=== PATIENT | female | born 1950 | race Caucasian/White ===

== ENCOUNTER 2016-10-30 08:30 | Inpatient (IN) | payer MEDICAID ==
--- NOTE | 2016-10-11 14:00 | NUR ---
JOINT REPLACEMENT PREOP CLASS PATIENT ATTENDED JOINT REPLACEMENT PREOP CLASS. CASE MANAGEMENT CONTACT INFORMATION PROVIDED. EDUCATION WAS PROVIDED REGARDING WHAT TO EXPECT BEFORE, DURING AND AFTER SURGERY. INCLUDING: OVERVIEW OF ANATOMY AND PHYSIOLOGY HOSPITAL TREATMENT SCHEDULE THERAPY DEMONSTRATION CASE MANAGEMENT RESPONSIBILITIES DISCHARGE PLANNING EQUIPMENT NEEDS JOINT REPLACEMENT WORKBOOK ANTI-COAGULATION SURGERY STRONG NUTRITIONAL PROTOCOL DISCHARGE INSTRUCTIONS [facility] [place]IENT [place]AL, WITH INSTRUCTIONS CJR AND PREOP SURVERY PREOP BATHING- CHG GIVEN ALL PATIENT'S QUESTIONS ANSWERED TO THEIR SATISFACTION. PATIENTS AND COACHES ENCOURAGED TO CALL WITH ANY ADDITIONAL QUESTIONS OR CONCERNS. CM FOLLOWING FOR TRANSITIONAL CARE PLANNING NEEDS DURING HOSPITALIZATION.
--- NOTE | 2016-10-25 14:14 | NUR ---
Reschedule Surgery Per telephone conversation with patient she has not been cleared with Dr Ellison and has a stress test scheduled after the current date of surgery. Confirmed this with Dr Ellison's office and rescheduled WILMER with patient for 11-20-16.
[~2016-10-30] VITALS: Ht 162.6 cm; Wt 96.5 kg
[~2016-10-30 08:30] MED LIST: ACET325T65 PO; ALBU18HF2 INH; ATEN50TA PO; CYCL-375 PO; DICL1TAB53 PO; ESTR0.3T26 PO; GABA-338 PO; LISI40TA4 PO; RANI150T7 PO; SIMV40TA5 PO
[2016-11-08] MEDS ORDERED: MONT10TA22 PO (10:12)
[2016-11-08] MEDS ORDERED: TIOT18CA3 ORAL INH (10:12)
[2016-11-08] MEDS ORDERED: SPIR25TA4 PO (10:12)
[2016-11-08] MEDS ORDERED: FLUT1DIS ORAL INH (10:12)
--- NOTE | 2016-11-08 12:00 | NUR ---
Abnormal labs Dr Pace notified with specific attention to elevated BUN and Creat and GFR of 35 drawn on 10-25-17. [place] [facility] [place] to him to compare, normal GFR, Creat and slightly elevated BUN. Per phone conversation with Dr Pace, patient is on numerous medications to control BP which he feels is elevated due to pain from her arthritic hip. His recommendation is to proceed with surgery and consult either Cardiology or Hospitalist for management of BP postop. Medication may need to be adjusted after surgery as pain is relieved. Dr Horvath and Jovanny HUNT notified.
--- NOTE | 2016-11-12 10:06 | NUR ---
NN CALLED PT WITH CHECK IN TIME FOR HER PROCEDURE. PT STATED SHE NEEDED TO CANCEL HER PROCEDURE FOR TOMORROW SHE IS SICK WITH BRONCHITIS. TRANSFERRED PT TO [facility]. SO SHE COULD NOTIFY PHYSICIAN.
--- NOTE | 2016-11-12 10:45 | NUR ---
Cancel Surgery Patient has a bad head cold and has been running a low grade fever over the weekend. She will see her PCP today but needs to cancel for tomorrow. OR medical appointment scheduler notified as well as Erin Quiroga MA to notify Dr Horvath.
[2017-01-02] MEDS ORDERED: HYDR25TA PO (16:49)
[2017-01-02] MEDS ORDERED: CALC-191 PO (16:49)
[2017-01-02] MEDS ORDERED: ALBU2.5V7 AEROSOL (16:49)
--- NOTE | 2017-01-02 16:49 | NUR ---
Face to face encounter with patient and her in preparation for surgery on 01-29-17. Pt did have labs drawn per request of Dr Horvath. Preop and DOS instructions reviewed and patient was encouraged to begin exercises that she is able to do in prep for surgery. States she has Boost, Hibiclens, and we reviewed that she should DC her Diclofenac one week before surgery. PMH, allergies, and meds updated.
[2017-01-28] MEDS ORDERED: OXYC-532 PO (14:57)
--- NOTE | 2017-01-28 16:53 | NUR ---
NN/[place] PATIENT REPORTS THAT SHE WAS TOLD BY JOINT CAMP PERSON TO ONLY WASH 24 HRS BEFORE SURGERY, I DID INSTRUCT PATIENT THAT SHE WAS TO WASH 4 DAYS PRIOR INCLUDING MORNING OF SURGERY. Addendum: 01/28/17 at 1657 by JOAQUÍN HERNANDEZ RN 3 DAYS PRIOR AND DOS, CHARTED BY
[2017-01-29] VITALS (29 sets, daily range): BP systolic 84–157; BP diastolic 50–99; PULSE 54–113; RESP 10–18; TEMP 96.6–98.5; O2SAT 90–100; Ht 162.6 cm; Wt 96.5 kg
[2017-01-29] MEDS ORDERED: TRANEXAMIC ACID 1,000 MG in NORMAL SALINE 100 ML IV ONE ×2 (06:00→11:30)
[2017-01-29] MEDS ORDERED: LR 1,000 ML IV SCH (06:00)
[2017-01-29] MEDS ORDERED: METOCLOPRAMIDE 10mg/2ml INJECTION IV ONE (06:00)
[2017-01-29] MEDS ORDERED: FAMOTIDINE 20mg IVPB 50 ML IV ONE (06:00)
[2017-01-29] MEDS ORDERED: NOZIN NASAL SWAB NS ONE ×2 (07:00→12:30)
[2017-01-29] MEDS ORDERED: ONDANSETRON 4mg/2ml INJECTION IV ONE (07:00)
[2017-01-29] MEDS ORDERED: ACETAMINOPHEN 500 MG TABLET PO ONE (07:00)
[2017-01-29] MEDS ORDERED: DEXAMETHASONE 4mg/ml - 1ml INJECTION IV ONE (07:00)
[2017-01-29] MEDS ORDERED: CEFAZOLIN 2 GM VIAL IV ONE (07:00)
[2017-01-29] MEDS ORDERED: LIDOCAINE 1% (10mg/ml) 2ml SDV SQ ONE (07:00)
[2017-01-29] MEDS ORDERED: EPINEPHRINE 0.25 MG, BUPIVACAINE 0.25% 75 MG, MORPHINE SULFATE 15 MG, KETOROLAC 60 MG i... INJ ONE ×5 (08:00)
--- OUTSIDE RECORDS SUMMARY | 2017-01-29 08:20 | XMS REPORT ---
Author Author Yordy Espinoza Organization [employer] Address Unknown Phone Unavailable Care Team Providers Care Cloth Shearer Name Role Phone Yordy Espinoza CP Unavailable Allergies, Adverse Reactions, Alerts Substance Reaction Event Type Sulfa itching Drug Allergy Lortab itching Drug Allergy Problems Problem Type Condition Code Onset Dates Condition Status Assessment Chronic obstructive pulmonary disease, unspecified J44.9 Active Assessment Mixed hyperlipidemia E78.2 Active Assessment Gastro-esophageal reflux disease without esophagitis K21.9 Active Assessment Nonspecific reaction to cell mediated immunity measurement of gamma interferon antigen response without active tuberculosis R76.12 Active Assessment 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 Problem Hypertension, benign 401.1 Active Problem Anxiety state, unspecified 300.00 Active Problem Other chronic pain 338.29 Active Assessment Essential (primary) hypertension I10 Active Assessment Otitis media, unspecified, right ear H66.91 Active Problem COPD 496 Active Problem Mixed hyperlipidemia 272.2 Active Medications Medication Code System Code Instructions Start Date End Date Status Dosage Spiriva HandiHaler [facility] [address]-05 18 MCG Oct 27, 2015 TAKE 1 CAPSULE ONCE A DAY BY INHALATION Gabapentin [facility] [address]-32 300 MG Orally Three times a day Jul 29, 2015 1 capsule Stool Softener [facility] [address]-68 100 MG Orally prn 1 capsule as needed Arthrotec [facility] [address]-76 50-200 MG-MCG Orally Three times a day 1 tablet Montelukast Sodium [facility] 65186822620 10 MG Orally at bedtime 1 tablet at bedtime Premarin [facility] [address]-76 0.3 MG Orally once a day TAKE 1 TABLET Flexeril [facility] [address]-64 10 MG Orally as needed takes occasionally 1 tablet Albuterol Sulfate [facility] 32901807910 (2.5 MG/3ML) 0.083% Inhalation as needed 1 -2 times per week 3 ml Simvastatin [facility] [address]-34 40MG Orally Once a day 1 tablet in the evening Ranitidine HCl [facility] [address]-34 150 MG TAKE 1 TABLET BY MOUTH TWO TIMES A DAY Atenolol [facility] 22286966386 50 MG Orally Twice every day TAKE 1 TABLET BY MOUTH TWO TIMES A DAY Lisinopril [facility] [address]-83 40 MG TAKE 1 TABLET BY MOUTH EVERY DAY Amoxicillin [facility] [address]-78 875 MG Orally Twice a day Aug 25, 2015 Sep 04, 2015 1 tablet Vitamin C [facility] [address]-59 500 MG Orally Once a day 1 tablet Calcium + D [facility] [address]-07 600-200 MG-UNIT Orally Once a day 1/ 2 tablet with food Ventolin HFA [facility] [address]-66 90 MCG/ACT Inhalation as needed Oct 11, 2014 2 puffs as needed Nystatin [facility] 14217451415 512153 UNIT/GM Externally Three times a day 1 application to affected area Oxycodone-Acetaminophen [facility] [address]-86 7.5-325 Orally every 6 hrs 1 tablet as needed Nebulizer/Tubing/Mouthpiece [facility] [address]47-[address]083 1 for inhalation:dx 496 1-2 times per week May 07, 2014 as directed Advair Diskus [facility] [address]-84 100-50 MCG/DOSE Inhalation Twice a day Nov 11, 2014 1 puff Procedures Procedure Coding System Code Date OFFICE VISIT, EST-MOD. COMPLEXITY (25 MIN) CPT-4 61805 Aug 25, 2015 Vital Signs Date/Time: Aug 25, 2015 Height 64 in Weight 181.4 lbs Temperature 98.2 F Blood Pressure Diastolic 106 mm Hg Blood Pressure Systolic 152 mm Hg Cardiac Monitoring Heart Rate 71 /min BMI 31.13 Index Oximetry 94 % Respiratory Rate 18 /min Results No Known Results Summary Purpose [employer] Submission
--- OUTSIDE RECORDS SUMMARY | 2017-01-29 08:20 | XMS REPORT ---
Author Author Franc Pace Organization [employer] Address Unknown Phone Unavailable Care Team Providers Care Pecan Gatherer Name Role Phone Franc Pace CP Unavailable Allergies No Known Allergies Problems Problem Type Condition ICD-9 Code Onset Dates Condition Status Problem Hypertension, benign 401.1 Active Problem Anxiety state, unspecified 300.00 Active Problem Other chronic pain 338.29 Active Problem COPD 496 Active Problem Mixed hyperlipidemia 272.2 Active Medications Medication Code System Code Instructions Start Date End Date Status Dosage Premarin [facility] [address]-51 0.3 MG Orally One daily April 01, 2013 Active 1 tablet Lisinopril [facility] [address]-67 40 MG Active TAKE 1 TABLET BY MOUTH EVERY DAY Vital Signs Date/Time: Aug 04, 2014 Height 64 inches Weight 185 lbs Temperature 98.2 F Blood Pressure Diastolic 87 mm Hg Blood Pressure Systolic 166 mm Hg Cardiac Monitoring Heart Rate 68 Beats per Minute BMI 31.75 Index Respiratory Rate 20 per Minute Results No Known Results Summary Purpose [employer] Submission
--- OUTSIDE RECORDS SUMMARY | 2017-01-29 08:20 | XMS REPORT ---
Author Author Yordy Espinoza Organization [employer] Address Unknown Phone Unavailable Care Team Providers Care Citrus Picker Name Role Phone Yordy Espinoza Unavailable Allergies No Known Allergies Problems Problem Type Condition Code Onset Dates Condition Status Problem Hypertension, benign 401.1 Active Problem Anxiety state, unspecified 300.00 Active Problem Other chronic pain 338.29 Active Problem COPD 496 Active Problem Mixed hyperlipidemia 272.2 Active Medications Medication Code System Code Instructions Start Date End Date Status Dosage Spiriva HandiHaler [facility] [address]-25 18 MCG Inhalation Once a day May 07, 2016 TAKE 1 CAPSULE ONCE A DAY BY INHALATION Results No Known Results Summary Purpose [employer] Submission
--- OUTSIDE RECORDS SUMMARY | 2017-01-29 08:20 | XMS REPORT ---
Author Author Yordy Espinoza Organization [employer] Address Unknown Phone Unavailable Care Team Providers Care Family Resource Management Professor Name Role Phone Yordy Espinoza CP Unavailable Allergies No Known Allergies Problems Problem Type Condition Code Onset Dates Condition Status Problem Hypertension, benign 401.1 Active Problem Anxiety state, unspecified 300.00 Active Problem Other chronic pain 338.29 Active Problem COPD 496 Active Problem Mixed hyperlipidemia 272.2 Active Medications Medication Code System Code Instructions Start Date End Date Status Dosage Lisinopril [facility] [address]-04 40 MG Orally Once a day TAKE 1 TABLET BY MOUTH EVERY DAY Results No Known Results Summary Purpose [employer] Submission
--- OUTSIDE RECORDS SUMMARY | 2017-01-29 08:20 | XMS REPORT ---
Author Yordy Brownlee Organization [employer] Address Unknown Phone Unavailable Care Team Providers Care Merchandise Director Name Role Phone Yordy Espinoza Unavailable Allergies No Known Allergies Problems Problem Type Condition Code Onset Dates Condition Status Problem Hypertension, benign 401.1 Active Problem Anxiety state, unspecified 300.00 Active Problem Other chronic pain 338.29 Active Assessment Essential (primary) hypertension I10 Active Problem COPD 496 Active Problem Mixed hyperlipidemia 272.2 Active Medications Medication Code System Code Instructions Start Date End Date Status Dosage Lisinopril [facility] [address]-90 40 MG Orally Once a day TAKE 1 TABLET BY MOUTH EVERY DAY Stool Softener [facility] [address]-23 100 MG Orally prn 1 capsule as needed Simvastatin [facility] [address]-43 40MG Orally Once a day 1 tablet in the evening Albuterol Sulfate [facility] 88563188665 (2.5 MG/3ML) 0.083% Inhalation as needed 1 -2 times per week 3 ml Advair Diskus [facility] [address]-34 100-50 MCG/DOSE Inhalation Twice a day Nov 11, 2014 1 puff Calcium + D [facility] [address]-32 600-200 MG-UNIT Orally Once a day 1/ 2 tablet with food Gabapentin [facility] [address]-68 300 MG Orally Three times a day Jul 29, 2015 1 capsule Oxycodone-Acetaminophen [facility] [address]-25 7.5-325 Orally every 6 hrs 1 tablet as needed Atenolol [facility] 16700100893 50 MG Orally Twice every day TAKE 1 TABLET BY MOUTH TWO TIMES A DAY Spiriva HandiHaler [facility] [address]-39 18 MCG Oct 27, 2015 TAKE 1 CAPSULE ONCE A DAY BY INHALATION Premarin [facility] [address]-55 0.3 MG Orally once a day TAKE 1 TABLET Ventolin HFA [facility] [address]-06 90 MCG/ACT Inhalation as needed Oct 11, 2014 2 puffs as needed Flexeril [facility] [address]-21 10 MG Orally as needed takes occasionally 1 tablet Vitamin C [facility] [address]-19 500 MG Orally Once a day 1 tablet Ranitidine HCl [facility] [address]-40 150 MG TAKE 1 TABLET BY MOUTH TWO TIMES A DAY Montelukast Sodium [facility] 66857943696 10 MG Orally at bedtime 1 tablet at bedtime Arthrotec [facility] [address]-95 50-200 MG-MCG Orally Three times a day 1 tablet Nebulizer/Tubing/Mouthpiece [facility] 47078[address]679 1 for inhalation:dx 496 1-2 times per week May 07, 2014 as directed Nystatin [facility] 59806383786 729521 UNIT/GM Externally Three times a day 1 application to affected area Procedures Procedure Coding System Code Date VARICELLA ZOSTER IGG CPT-4 88336 Sep 14, 2015 TSH CPT-4 32570 Sep 14, 2015 COMPLETE CBC W/AUTO DIFF WBC CPT-4 35170 Sep 14, 2015 Results No Known Results Summary Purpose [employer]Works Submission
--- OUTSIDE RECORDS SUMMARY | 2017-01-29 08:20 | XMS REPORT ---
Author Franc Harrison Organization [employer] Address Unknown Phone Unavailable Care Team Providers Care Instrument Room Technician Name Role Phone Franc Pace CP Unavailable Allergies No Known Allergies Problems Problem Type Condition ICD-9 Code Onset Dates Condition Status Problem Hypertension, benign 401.1 Active Problem Anxiety state, unspecified 300.00 Active Problem Other chronic pain 338.29 Active Problem COPD 496 Active Problem Mixed hyperlipidemia 272.2 Active Medications Medication Code System Code Instructions Start Date End Date Status Dosage Spiriva HandiHaler [facility] [address]-77 18 MCG Jul 18, 2015 TAKE 1 CAPSULE ONCE A DAY BY INHALATION Results No Known Results Summary Purpose [employer]Works Submission
--- OUTSIDE RECORDS SUMMARY | 2017-01-29 08:20 | XMS REPORT ---
Author Author Franc Pace Organization [employer] Address Unknown Phone Unavailable Care Team Providers Care Technical Clerk Name Role Phone Franc Pace CP Unavailable Allergies No Known Allergies Problems Problem Type Condition ICD-9 Code Onset Dates Condition Status Problem Hypertension, benign 401.1 Active Problem Anxiety state, unspecified 300.00 Active Problem Other chronic pain 338.29 Active Problem COPD 496 Active Problem Mixed hyperlipidemia 272.2 Active Medications Medication Code System Code Instructions Start Date End Date Status Dosage Premarin [facility] [address]-74 0.3 MG Orally once a day Active TAKE 1 TABLET Vital Signs Date/Time: Aug 04, 2014 Height 64 inches Weight 185 lbs Temperature 98.2 F Blood Pressure Diastolic 87 mm Hg Blood Pressure Systolic 166 mm Hg Cardiac Monitoring Heart Rate 68 Beats per Minute BMI 31.75 Index Respiratory Rate 20 per Minute Results No Known Results Summary Purpose [employer]ClinicalWorks Submission
--- OUTSIDE RECORDS SUMMARY | 2017-01-29 08:20 | XMS REPORT ---
Author Author Yordy Espinoza Organization [employer] Address Unknown Phone Unavailable Care Team Providers Care Youth Manager Name Role Phone Yordy Espinoza Unavailable Allergies No Known Allergies Problems Problem Type Condition Code Onset Dates Condition Status Problem Hypertension, benign 401.1 Active Problem Anxiety state, unspecified 300.00 Active Problem Other chronic pain 338.29 Active Problem COPD 496 Active Problem Mixed hyperlipidemia 272.2 Active Medications Medication Code System Code Instructions Start Date End Date Status Dosage Spiriva HandiHaler [facility] [address]-47 18 MCG Oct 27, 2015 TAKE 1 CAPSULE ONCE A DAY BY INHALATION Gabapentin [facility] [address]-63 300 MG Orally Three times a day Jul 29, 2015 1 capsule Results No Known Results Summary Purpose [employer]Works Submission
--- OUTSIDE RECORDS SUMMARY | 2017-01-29 08:21 | XMS REPORT ---
Author Author Franc Pace Organization [employer] Address Unknown Phone Unavailable Care Team Providers Care Director Of Enterprise Architecture Name Role Phone Franc Pace CP Unavailable Allergies No Known Allergies Problems Problem Type Condition ICD-9 Code Onset Dates Condition Status Problem Hypertension, benign 401.1 Active Problem Anxiety state, unspecified 300.00 Active Problem Other chronic pain 338.29 Active Problem COPD 496 Active Problem Mixed hyperlipidemia 272.2 Active Medications No Known Medications Vital Signs Date/Time: Aug 04, 2014 Height 64 inches Weight 185 lbs Temperature 98.2 F Blood Pressure Diastolic 87 mm Hg Blood Pressure Systolic 166 mm Hg Cardiac Monitoring Heart Rate 68 Beats per Minute BMI 31.75 Index Respiratory Rate 20 per Minute Results No Known Results Summary Purpose eClinicalWorks Submission
--- OUTSIDE RECORDS SUMMARY | 2017-01-29 08:21 | XMS REPORT | Continuity of Care Document ---
Author Author [facility] Organization [facility] Address Unknown Phone Unavailable Allergies Active Description Code Type Severity Reaction Onset Reported/Identified Relationship to Patient Clinical Status Yes Amlodipine [id number] Drug Allergy Moderate rash Medications Problems Date Dx Coded Attending Type Code Diagnosis Diagnosed By 12/28/2015 Latricia Pace MD 708.8 Urticaria, other 12/28/2015 Latricia Pace MD 305.1 Tobacco use disorder 12/28/2015 Latricia Pace MD 715.00 Generalized osteoarthritis, site unspecified 12/28/2015 Latricia Pace MD 715.15 Osteoarthritis of hip 12/28/2015 Latricia Pace MD 401.1 HTN 01/17/2016 Latricia Pace MD 786.2 Cough 01/18/2016 Latricia Pace MD 486 Community acquired pneumonia 01/18/2016 Latricia Pace MD 486 Community acquired pneumonia 01/26/2016 Latricia Pace MD 401.1 Essential hypertension 01/27/2016 Latricia Pace MD 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/2016 Latricia Pace MD 780.99 chronic pain 04/05/2016 Latricia Pace MD 692.6 Poison destini 06/25/2016 Latricia Pace MD 496 COPD 10/23/2016 Latricia Pace MD V72.83 Preoperative examination - other specified 10/24/2016 Latricia Pace MD 715.15 Hip DJD 11/12/2016 Latricia Pace MD 786.2 Cough Procedures Code Description [place] [address] Immunization administration; one vaccine 12/28/2015 17570 Therapeutic, prophylatic or diagnostic injection (specify substance or drug ); subcutaneous or intram 12/28/2015 [id number] Followup appointment in 3 weeks 12/28/2015 CHART Obtain previous records from outside facility 12/28/2015 97423 Office visit - new pt, level 3 12/28/2015 TCARE1 Transfer of Care from Emergency Department 01/17/2016 FU10D Follow up appointment in 10 days 01/18/2016 59446 Office/outpatient visit; established patient, level 4 01/18/2016 TCARE1 Transfer of Care from Emergency Department 01/26/2016 87992 Collection of venous blood by venipuncture 01/27/2016 47583 Comprehensive metabolic panel (Albumin, Bilirubin, Ca, CO2, Cl, Creatinine , Glu, alkaline phosphatas 01/27/2016 99073 Complete blood count (CBC), automated (Hgb, Hct, RBC, WBC, platelets) and automated differential WBC 01/27/2016 13667 Sedimentation rate, non-automated 01/27/2016 19951 Antinuclear antibodies titer 01/27/2016 27305 Rheumatoid factor, quantitative 01/27/2016 FU2MO Follow up appointment in 2 months 01/27/2016 46728 Office/outpatient visit; established patient, level 4 01/27/2016 47945 Therapeutic, prophylatic or diagnostic injection (specify substance or drug ); subcutaneous or intram 04/05/2016 96273 Office/outpatient visit; established patient, level 3 04/05/2016 05101 Collection of venous blood by venipuncture 06/25/2016 15395 Comprehensive metabolic panel (Albumin, Bilirubin, Ca, CO2, Cl, Creatinine , Glu, alkaline phosphatas 06/25/2016 37598 Complete blood count (CBC), automated (Hgb, Hct, RBC, WBC, platelets) and automated differential WBC 06/25/2016 71783 Sedimentation rate, non-automated 06/25/2016 44532 Antinuclear antibodies titer 06/25/2016 02305 Rheumatoid factor, quantitative 06/25/2016 18401 Office/outpatient visit; established patient, level 4 06/25/2016 FU2MO Follow up appointment in 2 months 06/25/2016 [id number] Followup appointment in 3 weeks 06/26/2016 09154 Immunization administration; one vaccine 06/26/2016 78936 Influenza virus vaccine, split virus, for use in individuals 3 years + age , for IM use 2015 18829 Immunization administration; one vaccine 07/30/2016 54224 Influenza virus vaccine, split virus, for use in individuals 3 years + age , for IM use 2015 45504 Office/outpatient visit; established patient, level 4 07/30/2016 FU3WK Followup appointment in 3 weeks 07/30/2016 17942 Collection of venous blood by venipuncture 07/31/2016 52327 Basic metabolic panel (Ca, CO2, Cl, Creatinine, Glu, K, Na, BUN) 07/31/2016 FU6WK Follow up appointment in 6 weeks 07/31/2016 95297 Collection of venous blood by venipuncture 09/12/2016 23783 Basic metabolic panel (Ca, CO2, Cl, Creatinine, Glu, K, Na, BUN) 09/12/2016 26438 Office/outpatient visit; established patient, level 4 09/12/2016 FU6WK Follow up appointment in 6 weeks 09/12/2016 REFER Set up patient referral to a retail client solutions consultant 09/12/2016 REFER Set up patient referral to a retail client solutions consultant 09/12/2016 REFER Set up patient referral to a retail client solutions consultant 09/12/2016 17612 Collection of venous blood by venipuncture 10/24/2016 62009 Radiologic examination, chest, two views, frontal and lateral 10/24/2016 87589 Comprehensive metabolic panel (Albumin, Bilirubin, Ca, CO2, Cl, Creatinine , Glu, alkaline phosphatas 10/24/2016 54086 Electrocardiogram, routine with at least 12 leads; with interpretation and report 10/24/2016 A4556 EKG electrodes 35782 Office/outpatient visit; established patient, level 4 10/24/2016 46930 Therapeutic, prophylactic or diagnostic injection; subcutaneous or intramuscular 2016 J0696 Ceftriaxone Sodium, per 250 mg 11/12/2016 72362 Office/outpatient visit; established patient, level 3 11/12/2016 Results Encounters ACCT No. Visit Date/Time Discharge Status Pt. Type Provider Facility Loc./Unit Complaint [id number] 11/12/2016 14:22:50 2016 14:57:12 [facility]
--- OUTSIDE RECORDS SUMMARY | 2017-01-29 08:21 | XMS REPORT ---
Author Author Franc Pace Organization [employer] Address Unknown Phone Unavailable Care Team Providers Care Business Objects Consultant Name Role Phone Franc Pace CP Unavailable [...]
--- OUTSIDE RECORDS SUMMARY | 2017-01-29 08:21 | XMS REPORT ---
Author Author Yordy Espinoza Organization [employer] Address Unknown Phone Unavailable Care Team Providers Care Rig Operator Name Role Phone Yordy Espinoza CP Unavailable Allergies No Known Allergies Problems Problem Type Condition Code Onset Dates Condition Status Problem Hypertension, benign 401.1 Active Problem Anxiety state, unspecified 300.00 Active Problem Other chronic pain 338.29 Active Problem COPD 496 Active Problem Mixed hyperlipidemia 272.2 Active Medications Medication Code System Code Instructions Start Date End Date Status Dosage Simvastatin [facility] [address]-94 40MG Orally Once a day 1 tablet in the evening Atenolol [facility] [address]-37 50 MG Orally Twice every day TAKE 1 TABLET BY MOUTH TWO TIMES A DAY Montelukast Sodium [facility] [address]-09 10 MG Orally at bedtime 1 tablet at bedtime Results No Known Results Summary Purpose [employer] Submission
--- OUTSIDE RECORDS SUMMARY | 2017-01-29 08:21 | XMS REPORT ---
Author Author Yordy Espinoza Organization [employer] Address Unknown Phone Unavailable Care Team Providers Care Director International Name Role Phone Yordy Espinoza CP Unavailable Allergies No Known Allergies Problems Problem Type Condition Code Onset Dates Condition Status Problem Hypertension, benign 401.1 Active Problem Anxiety state, unspecified 300.00 Active Problem Other chronic pain 338.29 Active Problem COPD 496 Active Problem Mixed hyperlipidemia 272.2 Active Medications Medication Code System Code Instructions Start Date End Date Status Dosage Premarin [facility] [address]-16 0.3 MG Orally once a day TAKE 1 TABLET Results No Known Results Summary Purpose [employer] Submission
--- OUTSIDE RECORDS SUMMARY | 2017-01-29 08:21 | XMS REPORT ---
Author Author Yordy Espinoza Organization [employer] Address Unknown Phone Unavailable Care Team Providers Care Show Operations Supervisor Name Role Phone Yordy Espinoza CP Unavailable Allergies, Adverse Reactions, Alerts Substance Reaction Event Type Sulfa itching Drug Allergy Lortab itching Drug Allergy Problems Problem Type Condition Code Onset Dates Condition Status Assessment Wheezing R06.2 Active Assessment Allergic rhinitis, unspecified J30.9 Active Assessment Chronic obstructive pulmonary disease, unspecified J44.9 Active Assessment Unspecified Eustachian tube disorder, unspecified ear H69.90 Active Problem Hypertension, benign 401.1 Active Problem Anxiety state, unspecified 300.00 Active Problem Other chronic pain 338.29 Active Assessment Acute bronchitis, unspecified J20.9 Active Assessment Otitis media, unspecified, left ear H66.92 Active Problem COPD 496 Active Problem Mixed hyperlipidemia 272.2 Active Medications Medication Code System Code Instructions Start Date End Date Status Dosage Flexeril [facility] [address]-77 10 MG Orally as needed takes occasionally 1 tablet Oxycodone-Acetaminophen [facility] [address]-69 7.5-325 Orally every 6 hrs 1 tablet as needed Stool Softener [facility] [address]-45 100 MG Orally prn 1 capsule as needed Ranitidine HCl [facility] [address]-15 150 MG TAKE 1 TABLET BY MOUTH TWO TIMES A DAY Amoxicillin [facility] [address]-20 875 MG Orally Twice a day Oct 11, 2015 1 tablet Flonase [facility] [address]-54 50 MCG/ACT Nasally Once a day Oct 11, 2015 1 spray in each nostril PredniSONE [facility] [address]-40 10 MG Orally as directed Oct 11, 2015 take 4 tabs daily X2 days then 2 tabs daily X3 days then 1 tab daily X3 days then stop. take with food. Vitamin C [facility] [address]-12 500 MG Orally Once a day 1 tablet Ventolin HFA [facility] [address]-78 90 MCG/ACT Inhalation as needed Oct 11, 2014 2 puffs as needed Premarin [facility] [address]-83 0.3 MG Orally once a day TAKE 1 TABLET Advair Diskus [facility] [address]-67 100-50 MCG/DOSE Inhalation Twice a day Nov 11, 2014 1 puff Gabapentin [facility] [address]-77 300 MG Orally Three times a day Jul 29, 2015 1 capsule Montelukast Sodium [facility] [address]-03 10 MG Orally at bedtime 1 tablet at bedtime Spiriva HandiHaler [facility] [address]-55 18 MCG Oct 27, 2015 TAKE 1 CAPSULE ONCE A DAY BY INHALATION Lisinopril [facility] [address]-11 40 MG Orally Once a day TAKE 1 TABLET BY MOUTH EVERY DAY Nebulizer/Tubing/Mouthpiece [facility] [address]173 1 for inhalation:dx 496 1-2 times per week May 07, 2014 as directed Arthrotec [facility] [address]-88 50-200 MG-MCG Orally Three times a day 1 tablet Tessalon Perles [facility] [address]-28 100 MG Orally Three times a day as needed for cough/congestion Oct 11, 2015 1 capsule as needed Atenolol [facility] [address]-34 50 MG Orally Twice every day TAKE 1 TABLET BY MOUTH TWO TIMES A DAY Nystatin [facility] 98747844091 069918 UNIT/GM Externally Three times a day 1 application to affected area Calcium + D [facility] [address]-04 600-200 MG-UNIT Orally Once a day 1/ 2 tablet with food Albuterol Sulfate [facility] 28964357420 (2.5 MG/3ML) 0.083% Inhalation as needed 1 -2 times per week 3 ml Simvastatin [facility] [address]-88 40MG Orally Once a day 1 tablet in the evening Procedures Procedure Coding System Code Date OFFICE VISIT, EST-LOW COMPLEXITY (15 MIN.) CPT-4 03270 Oct 11, 2015 Vital Signs Date/Time: Oct 11, 2015 Height 64 in Weight 184.4 lbs Temperature 98.1 F Blood Pressure Diastolic 88 mm Hg Blood Pressure Systolic 146 mm Hg Cardiac Monitoring Heart Rate 74 /min BMI 31.65 Index Oximetry 97 % Respiratory Rate 16 /min Results No Known Results Summary Purpose [employer] Submission
--- OUTSIDE RECORDS SUMMARY | 2017-01-29 08:21 | XMS REPORT ---
Author Author Yordy Espinoza Organization [employer] Address Unknown Phone Unavailable Care Team Providers Care Lag Screwer Name Role Phone Yordy Espinoza CP Unavailable Allergies No Known Allergies Problems Problem Type Condition Code Onset Dates Condition Status Problem Hypertension, benign 401.1 Active Problem Anxiety state, unspecified 300.00 Active Problem Other chronic pain 338.29 Active Problem COPD 496 Active Problem Mixed hyperlipidemia 272.2 Active Medications Medication Code System Code Instructions Start Date End Date Status Dosage Gabapentin [facility] [address]-13 300 MG Orally Three times a day Jul 29, 2015 1 capsule Premarin [facility] [address]-19 0.3 MG Orally once a day TAKE 1 TABLET Results No Known Results Summary Purpose [employer] Submission
--- OUTSIDE RECORDS SUMMARY | 2017-01-29 08:21 | XMS REPORT ---
Author Yordy Brownlee Organization [employer] Address Unknown Phone Unavailable Care Team Providers Care Correctional Case Records Supervisor Name Role Phone Yordy Espinoza Unavailable Allergies No Known Allergies Problems Problem Type Condition Code Onset Dates Condition Status Problem Hypertension, benign 401.1 Active Problem Anxiety state, unspecified 300.00 Active Problem Other chronic pain 338.29 Active Assessment Essential (primary) hypertension I10 Active Problem COPD 496 Active Problem Mixed hyperlipidemia 272.2 Active Medications Medication Code System Code Instructions Start Date End Date Status Dosage Calcium + D [facility] [address]-64 600-200 MG-UNIT Orally Once a day 1/ 2 tablet with food Nebulizer/Tubing/Mouthpiece [facility] 23[address]118 1 for inhalation:dx 496 1-2 times per week May 07, 2014 as directed Simvastatin [facility] [address]-86 40MG Orally Once a day 1 tablet in the evening Gabapentin [facility] [address]-63 300 MG Orally Three times a day Jul 29, 2015 1 capsule Advair Diskus [facility] [address]-54 100-50 MCG/DOSE Inhalation Twice a day Nov 11, 2014 1 puff Vitamin C [facility] [address]-86 500 MG Orally Once a day 1 tablet Lisinopril [facility] [address]-01 40 MG Orally Once a day TAKE 1 TABLET BY MOUTH EVERY DAY Stool Softener [facility] [address]-38 100 MG Orally prn 1 capsule as needed Albuterol Sulfate [facility] 33588769157 (2.5 MG/3ML) 0.083% Inhalation as needed 1 -2 times per week 3 ml Spiriva HandiHaler [facility] [address]-03 18 MCG Oct 27, 2015 TAKE 1 CAPSULE ONCE A DAY BY INHALATION Premarin [facility] [address]-20 0.3 MG Orally once a day TAKE 1 TABLET Ranitidine HCl [facility] [address]-32 150 MG TAKE 1 TABLET BY MOUTH TWO TIMES A DAY Flexeril [facility] [address]-99 10 MG Orally as needed takes occasionally 1 tablet Oxycodone-Acetaminophen [facility] [address]-30 7.5-325 Orally every 6 hrs 1 tablet as needed Atenolol [facility] 34442227524 50 MG Orally Twice every day TAKE 1 TABLET BY MOUTH TWO TIMES A DAY Montelukast Sodium [facility] 28467487860 10 MG Orally at bedtime 1 tablet at bedtime Arthrotec [facility] [address]-12 50-200 MG-MCG Orally Three times a day 1 tablet Ventolin HFA [facility] [address]-68 90 MCG/ACT Inhalation as needed Oct 11, 2014 2 puffs as needed Nystatin [facility] 29606157798 222284 UNIT/GM Externally Three times a day 1 application to affected area Procedures Procedure Coding System Code Date LIPID PANEL CPT-4 30509 Sep 14, 2015 MicroAlb/Creat Ratio, Urine CPT-4 65013 Sep 14, 2015 CMP CPT-4 47788 Sep 14, 2015 URINALYSIS, IN HOUSE CPT-4 66746 Sep 14, 2015 MicroAlb/Creat Ratio, Urine CPT-4 78969 Sep 14, 2015 Results No Known Results Summary Purpose eClinicalWorks Submission
[2017-01-29 08:54] LABS: ANION GAP 13 MEQ/L (5-15); BUN/CREATININE RATIO 47 RATIO (6-26); CALCIUM 9.5 MG/DL (8.4-10.2); CHLORIDE 104 MEQ/L (98-107); CO2 - CARBON DIOXIDE 23 MEQ/L (22-30); CREATININE 1.5 MG/DL (0.7-1.2); GLOMERULAR FILTRATION RATE 35; GLUCOSE 129 MG/DL (65-110); SODIUM 140 MEQ/L (134-144)
[2017-01-29] MEDS ORDERED: NORMAL SALINE 1,000 ML IV PRN (09:34)
[2017-01-29] MEDS ORDERED: VANCOMYCIN 1 GRAM INJECTION ONE (09:52)
--- NOTE | 2017-01-29 09:54 | ANESPREOP ---
Anesthesia Record Date and Time DATE: 01/29/17 TIME: 09:42 Proposed Surgical Procedure LT WILMER Allergies: Coded Allergies: amlodipine (Verified Allergy, Unknown, RASH, 01/29/17) Sulfa (Sulfonamide Antibiotics) (Verified Adverse Reaction, Unknown, ITCHING, 01/29/17) hydrocodone bit (Verified Adverse Reaction, Unknown, ITCHING, 01/29/17) TAKES OXYCODONE AT HOME Ht/Wt/BMI Height: 5 ' 4.00 " Weight: 88.000 kg BMI: 33.3 kg/m2 Medications Inpatient Medications Current Medications Medications (Trade) Dose Ordered Sig/Robin Start Time Stop Time Status Last Admin Dose Admin Lactated Ringer's 1,000 ml @ 50 mls/hr Q20H 01/29/17 06:00 01/29/17 09:35 DC 01/29/17 09:17 50 MLS/HR Sodium Chloride (Normal Saline IV) 1,000 ml @ 50 mls/hr Q20H PRN 01/29/17 09:34 01/29/17 09:37 50 MLS/HR Acetaminophen (Non-Aspirin) 325 Mg Tablet, 650 MG PO Q6H PRN for PAIN, (Reported ) Last Taken: on 01/26/17 Albuterol Sulfate (Ventolin HFA 90 mcg/actuation) 18 Gm Hfa.aer.ad, 1 PUFF INH Q6HPRN PRN for SHORTNESS OF AIR/WHEEZING, (Reported ) Last Taken: on Unknown Date & Time Albuterol Sulfate (Albuterol Sulfate) 2.5 Mg/3 Ml Vial.neb, 1 VIAL AEROSOL Q6HPRN PRN for SHORTNESS OF AIR/WHEEZING, ( Reported) Last Taken: on 01/29/17714 Atenolol (Atenolol) 50 Mg Tablet, 50 MG PO BID, (Reported) Last Taken: on 01/29/17714 Calcium Carbonate/Vitamin D3 (Calcium + Vitamin D Tablet) 1 Each Tablet, 1 TAB PO DAILY, (Reported) Last Taken: on 01/22/17 Cyclobenzaprine HCl (Cyclobenzaprine HCl) 10 Mg Tablet, 10 MG PO BID, (Reported) Last Taken: on 01/29/17714 Diclofenac Sodium/Misoprostol (Diclofenac- Misoprost 50-200 Tb) 1 Each Tab.ir.dr, 1 TAB PO 1400&HS PRN for PAIN, (Reported) Last Taken: on 01/15/17 Estrogens,Conjugated (Premarin) 0.3 Mg Tablet, 0.3 MG PO DAILY, (Reported) Last Taken: on 01/29/17714 Fluticasone/Salmeterol (Advair 100-50 Diskus) 1 Disk W/Dev Inhaler, 1 PUFF ORAL INH RTBID, (Reported) Last Taken: on 01/29/17714 Gabapentin (Gabapentin) 300 Mg Capsule, 600 MG PO TID, (Reported) Last Taken: on 01/29/17714 Hydrochlorothiazide (Hydrochlorothiazide) 25 Mg Tablet, 1 TAB PO DAILY, (Reported) Last Taken: on 01/29/17714 Lisinopril (Lisinopril) 40 Mg Tablet, 40 MG PO HS, (Reported) Last Taken: on 01/28/172199 Montelukast Sodium (Singulair) 10 Mg Tablet, 10 MG PO HS, (Reported) Take 1 tablet, by mouth, one time a day (at bedtime). Last Taken: on 01/28/172199 Oxycodone HCl/Acetaminophen (Oxycodon- Acetaminophen 7.5-325) 7.5-325 Tablet, 1 TAB PO DAILY PRN for PAIN, (Reported) Last Taken: on 01/28/172199 Ranitidine HCl (Ranitidine HCl) 150 Mg Tablet, 150 MG PO BID, (Reported) Last Taken: on 01/29/17714 Simvastatin (Simvastatin) 40 Mg Tablet, 40 MG PO HS, (Reported) Last Taken: on 01/28/172199 Spironolactone (Spironolactone) 25 Mg Tablet, 25 MG PO HS, (Reported) Last Taken: on 01/28/172199 Tiotropium [place] (Spiriva) 1 Cap Inhaler, 1 CAP ORAL INH DAILY, (Reported) Place 1 capsule into inhaler , puncture and inhale one time a day. Last Taken: on 01/29/17714 Currently on Beta Jarrod: Yes Medical/Surgical History Anesthesia PMH: Reports: *Dyspnea (ON EXERTION), *Hypertension, Anesthesia Reactions (NO KNOWN AIRWAY ISSUES), Arthritis (OA-- LT HIP; right shoulder), COPD, Pneumonia (HX OF), Reflux Smoking Status: Current every day smoker Has pt. smoked today?: No Use Chewing Tobacco?: No HX of Last Menstrual Period: HYST Past Surgical History Orthopedic Surgeries: Yes - RT TKA; LT HAND, LT TKR, RT WILMER Abdominal Surgeries: Yes - UMB HERNIA W/ MESH; APPY Genitourinary Surgeries: Cardiac Surgeries: Endocrine Surgeries: Reproductive Surgeries: Yes - SLADE Neurological Surgeries: Ear Surgeries: Nose Surgeries: Throat Surgeries: Other Surgeries: No Anesthesia Adverse Reactions: FOUND none Family Hx of Anesthesia Advers: none Hx of Motion Sickness: No Pertinent Findings Laboratory Tests 01/29/17 08:38 EKG Rhythm: Sinus Rhythm Physical Exam Respiratory: Other (Bilateral lungs coarse), Wheezing Cardiovascular: FOUND Regular rate, rhythm Airway Assessment Mallampati Score: I TMD: 3 Fingerbreadths Neck Extension: Good Teeth: Chipped Teeth/Crowns, Poor Dentation Overall Assessment: No Airway Concerns ASA: 3 Plan Regional: Spinal Discussion Discussed risks/options/alternatives of anesthesia and questions answered. Patient consents. Nursing pain assessment noted. Present: Spouse Attestation Statement Prior to the delivery of any anesthetic medication, I examined the patient, developed the plan, obtained the patient's consent and discussed the risk and benefits of the procedure with the patient/guardian. DIMITRI LEMON CRNA Jan 29, 2017 09:54
[2017-01-29] MEDS ORDERED: ONDANSETRON 4mg/2ml INJECTION IV PRN ×2 (11:45→12:30)
[2017-01-29] MEDS ORDERED: HYDROMORPHONE 2mg/ml INJECTION IV PRN (11:45)
--- NOTE | 2017-01-29 12:13 | PDOPERATE ---
Operative Report Date of Operation 01/29/17 Side: Left Preoperative Diagnosis: hip primary DJD Postoperative Diagnosis Same as preoperative diagnosis. Operation/Procedure: total hip arthroplasty (left) Surgeon Jaymie Horvath MD Reading Recovery Teacher GILBERT Voss Complications None. Regional Block: Spinal Estimated Blood Loss See Anesthesia Record. Fluids Please See Anesthesia Record. Description of Operation Ms. Taveras and her left hip were identified and marked in the the preoperative holding area. She was then brought back to the operating suite and proper anesthesia was administered. She was then positioned lateral on the operating table. The left lower extremity was then prepped and draped in my normal sterile fashion. Timeout was performed with all operating room personnel. She was significantly short, 45 inches, at the knees on the table in lateral position. A posterior approach was utilized. Approximately 15 cm incision was made in the skin and dissection carried down to the muscle fascia which was then split in line with skin incision. Charnley retractor was placed and the short external rotators were identified and tagged and detached. Capsulotomy was performed and the hip dislocated. As expected her head was completely gone and there was rice bodies present within the acetabulum. A femoral neck osteotomy was performed approximately 1 cm proximal to the lesser trochanter. The neck was removed and acetabulum exposed. Labrum was removed and sequentially reamed to a size 51 and placed a 52 cup in 20 of anteversion. A liner was then placed. The proximal femur was exposed and prepared with a cookie cutter followed by reaming and broaching to a size 7. This gave her excellent stability and she felt well balanced. She was still short at the knee approximately 1-2 inches. After thorough irrigation a final Accolade 2 size 7 127 stem was placed. We trialed again with the +2.5 head and this felt good. Stability was good and again about 1-2 inches short at the knees. A final +2.5 ceramic 36 mm head was placed and the hip reduced. Betadine solution was allowed to sit in the wound for 3 minutes and fully irrigated out with normal saline. Joint cocktail was injected throughout soft tissue. The capsulotomy was repaired with Ethibond. Short external rotators were also repaired with Ethibond. 1 g of vancomycin powder was placed into the wound. The muscle fascia was then repaired with #1 Vicryl. I then left my system to close the subcutaneous tissue with 2-0 Vicryl followed by running 4-0 Monocryl skin followed by Dermabond and a sterile dressing. The patient with any placed back into supine position and taken to recovery room in the care of anesthesia. JUSTIN HORVATH MD Jan 29, 2017 12:13
[2017-01-29] MEDS: NORMAL SALINE 1,000 ML IV SCH ×2 (12:27→16:48)
[2017-01-29] MEDS ORDERED: ALBUTEROL INH.SOLN. 2.5mg/3ml (0.083%) Neb. AEROSOL PRN ×2 (12:30)
[2017-01-29] MEDS ORDERED: DiphenhydrAMINE 25 MG CAPSULE PO PRN (12:30)
[2017-01-29] MEDS ORDERED: MISOPROSTOL PO PRN (12:30)
[2017-01-29] MEDS ORDERED: DiphenhydrAMINE 50 MG/ML INJECTION IV PRN (12:30)
[2017-01-29] MEDS ORDERED: SENNOSIDES 8.6 MG TABLET PO PRN (12:30)
[2017-01-29] MEDS ORDERED: LORAZEPAM 1 MG TABLET PO PRN ×2 (12:30→16:45)
[2017-01-29] MEDS ORDERED: METOCLOPRAMIDE 10mg/2ml INJECTION IV PRN (12:30)
[2017-01-29] MEDS ORDERED: PRN ORDERS MC (12:30)
[2017-01-29] MEDS ORDERED: DICLOFENAC PO PRN (12:30)
[2017-01-29] MEDS ORDERED: MIDAZOLAM 2mg/2ml INJECTION IV ONE (13:00)
[2017-01-29] MEDS ORDERED: KETAMINE 500mg/10ml INJECTION IV ONE (13:00)
[2017-01-29] MEDS ORDERED: FENTANYL 100mcg/2ml INJECTION IV ONE (13:00)
[2017-01-29] MEDS ORDERED: LEVALBUTEROL INH.SOLN. 1.25mg/3ml Neb. AEROSOL ONE (13:00)
--- NOTE | 2017-01-29 13:21 | ANESPO ---
Post-Op Note Date 01/29/17 Time: 13:20 Status Pt Participated in Evaluation: Pt participated in person Vital Signs Date Time Temp Pulse Resp B/P Pulse Ox O2 Delivery O2 Flow Rate FiO2 01/29/17 13:10 72 01/29/17 13:10 18 98 01/29/17 12:33 97.0 99/59 Room Air Respiratory Function: Airway patent, Regular respirations Cardiovascular Function: Regular pulse Mental Status: Alert/oriented Pain Level Intensity: 0 Unable to Assess Pain Due To: intra op Hydration: IV infusing Complications during Recovery None apparent Follow-Up Instructions Instructions Per Surgeon DIMITRI LEMON CRNA Jan 29, 2017 13:21
--- NOTE | 2017-01-29 13:28 | NUR ---
Admit Pt transferred at this time via slideboard from the cart to the bed. VS stable on 1L NC. Mepilex dressing to left hip c/d/i. Pt denies pain and nausea at this time. Ice pack in place to the left hip. present at the time of transfer.
--- NOTE | 2017-01-29 13:44 | DI ---
Indication: ITS.REASON: POSTOP left hip replacement PROCEDURE: PELVIS W/1 VIEW LT HIP: Encounter: Initial Comparison: None Findings: Postoperative changes of left total hip replacement are seen. There is expected postoperative subcutaneous gas. No evidence of hardware failure or acute fracture. No retained radiopaque surgical instruments or sponges seen. Existing left hip prosthesis appears intact. Impression: New left total hip prosthesis without evidence of immediate complication. .
[2017-01-29] MEDS: NOZIN NASAL SWAB NS SCH ×2 (14:00→21:22)
[2017-01-29] MEDS: ACETAMINOPHEN 325 MG TABLET PO SCH ×3 (14:26→22:56)
[2017-01-29] MEDS: GABAPENTIN 300 MG CAPSULE PO SCH ×2 (15:35→21:20)
--- NOTE | 2017-01-29 18:07 | NUR ---
Summary VS stable on RA. Pt denies nausea. Pt rated pain a 2/10, scheduled Tylenol given, no PRN pain medication given yet at this time. Pt walked with therapy in the hallway, Pt in own clothes. Family present in the room. Mepilex c/d/i. Ice pack in place. Call light w/in reach, side rails up X2, bed alarm on.
[2017-01-29] MEDS: CEFAZOLIN 2 G in NORMAL SALINE 100 ML IV SCH (18:40)
[2017-01-29] MEDS: RANITIDINE 150 MG TABLET PO SCH (21:20)
[2017-01-29] MEDS: MONTELUKAST 10 MG TABLET PO SCH (21:20)
[2017-01-29] MEDS: ATENOLOL 50 MG TABLET PO SCH (21:20)
[2017-01-29] MEDS: SIMVASTATIN 40 MG TABLET PO SCH (21:20)
[2017-01-29] MEDS: SENNOSIDES 8.6 MG TABLET PO SCH (21:21)
[2017-01-29] MEDS: ASPIRIN *EC* 325mg TABLET PO SCH (21:22)
[2017-01-29] MEDS: FLUTICASONE/SALMETEROL 100/50 DISK INHALER ORAL INH SCH (21:22)
[2017-01-29] MEDS: CYCLOBENZAPRINE 10 MG TABLET PO SCH (21:28)
[2017-01-29] MEDS ORDERED: LISINOPRIL 40 MG TABLET PO SCH (22:00)
[2017-01-29] MEDS ORDERED: SPIRONOLACTONE 25 MG TABLET PO SCH (22:00)
[2017-01-29] MEDS: OXYCODONE I.R. 5 MG TABLET PO PRN (23:03)
[2017-01-30] VITALS (12 sets, daily range): BP systolic 101–142; BP diastolic 53–83; PULSE 67–78; RESP 13–18; TEMP 96.6–98.1; O2SAT 83–100
[2017-01-30] MEDS: CEFAZOLIN 2 G in NORMAL SALINE 100 ML IV SCH (01:38)
--- NOTE | 2017-01-30 03:53 | NUR ---
Chart Check 24 hour chart check completed
[2017-01-30 05:23] LABS: HCT - HEMATOCRIT 27.8 % (36-46); HGB - HEMOGLOBIN 9.1 GM/DL (12-16); MEAN CORPUSCULAR HGB 32.9 UUG (26-34); MEAN CORPUSCULAR HGB CONC(MCHC 32.7 GM/DL (31-37); MEAN CORPUSCULAR VOLUME 100.4 UM3 (80-100); RED BLOOD COUNT 2.77 M/MM3 (4.00-5.20); WBC - WHITE BLOOD COUNT 14.7 T/MM3 (4.5-11.0)
[2017-01-30 05:25] LABS: ANION GAP 7 MEQ/L (5-15); BUN/CREATININE RATIO 47 RATIO (6-26); CALCIUM 7.7 MG/DL (8.4-10.2); CHLORIDE 109 MEQ/L (98-107); CO2 - CARBON DIOXIDE 21 MEQ/L (22-30); CREATININE 1.5 MG/DL (0.7-1.2); GLOMERULAR FILTRATION RATE 35; GLUCOSE 129 MG/DL (65-110); POTASSIUM 5.5 MEQ/L (3.6-5); SODIUM 137 MEQ/L (134-144)
[2017-01-30] MEDS: NOZIN NASAL SWAB NS SCH ×3 (06:38→21:29)
[2017-01-30] MEDS: OXYCODONE I.R. 5 MG TABLET PO PRN (06:38)
--- NOTE | 2017-01-30 07:35 | NUR ---
SUMMARY PT WAS PLACED ON 1L NC BY RT DURING NIGHT, O2 WAS DROPPING TO 80'S AND RT ABLE TO FINISH OXIMETRY STUDY. DENIES NAUSEA. TOLERATING PAIN IN LEFT HIP ON SCHEDULED TYLENOL AND 1 ROXICODONE AT A TIME. UP WITH 1 ASSIST WITH HER WALKER AND A GAIT BELT. ALSO IN ROOM DURING NIGHT. ALERT AND ORIENTED.
--- NOTE | 2017-01-30 08:40 | NUR ---
CM CM IN TO VISIT WITH PT. SHE IS ALERT AND ORIENTED. SHE WOULD LIKE TO DC HOME WITH SPOUSE AND DO OUTPT PT AT [facility]. SHE HAS FWW AND IS GIVEN HIP KIT. PT IS MADE AWARE THAT THERAPY IS RECOMMENDING IRU. PT AGREES TO IRU SCREEN. SHE IS GIVEN CM CONTACT INFORMATION AND [facility] DIRECTIVES PAPERWORK. LACE SCORE IS 8. Addendum: 01/30/17 at 0841 by SHAYNA ZARATE RN Amended: Links added.
[2017-01-30] MEDS: ASPIRIN *EC* 325mg TABLET PO SCH ×3 (08:46→21:28)
[2017-01-30] MEDS: DOCUSATE SODIUM 100 MG CAPSULE PO SCH ×3 (08:46→21:28)
[2017-01-30] MEDS: CYCLOBENZAPRINE 10 MG TABLET PO SCH ×2 (08:46→21:28)
[2017-01-30] MEDS: ATENOLOL 50 MG TABLET PO SCH ×2 (08:47→21:27)
[2017-01-30] MEDS: ACETAMINOPHEN 325 MG TABLET PO SCH ×4 (08:47→23:59)
[2017-01-30] MEDS: RANITIDINE 150 MG TABLET PO SCH (08:47)
[2017-01-30] MEDS: GABAPENTIN 300 MG CAPSULE PO SCH ×3 (08:47→21:28)
[2017-01-30] MEDS: POLYETHYL.GLYCOL 3350 PACKET 17gm PO SCH (08:48)
--- NOTE | 2017-01-30 09:05 | NUR ---
RENAL DOSING: Ranitidine Today's SCr = 1.5 mg/dl. Calculated CrCl = 41 ml/min. Ranitidine adjusted to 150 mg po daily based on renal function. Pharmacy will monitor and adjust as needed. Thank you, Tamara Marshall RP
--- NOTE | 2017-01-30 09:10 | PDORTHOPN ---
Subjective Date DATE: 01/30/17 TIME: 08:54 Subjective Florence reports her pain is well controlled on PO meds this AM. She has been up with good tolerance. Denies feeling SOA or having any CP. Her BUN is significantly elevated at 70 and BUN is 1.5 and stable. She reports having difficulties swallowing and has burning in the epigastric region. She has been on diclofenac / Cytotec combination medication for her arthritis. Denies any obvious signs of GI bleeding. Objective Vital Signs Vital signs Vital Signs 01/29/17 01/29/17 01/29/17 01/29/17 21:16 22:00 22:00 23:00 Temp 97.0 Pulse 75 73 Resp 16 16 Pulse Ox 95 90 O2 Delivery Room Air Nasal Cannula Room Air O2 Flow Rate 1.00 01/29/17 01/30/17 01/30/17 01/30/17 23:04 00:08 00:18 01:00 Temp 96.6 Pulse 76 69 Resp 18 16 B/P 111/65 Pulse Ox 98 83 97 91 O2 Delivery Room Air Room Air Nasal Cannula Room Air O2 Flow Rate 1.00 01/30/17 01/30/17 01/30/17 01/30/17 01:15 03:00 03:58 07:20 Temp 97.6 98.1 Pulse 74 70 77 67 Resp 16 16 13 16 B/P 102/78 125/83 Pulse Ox 94 93 93 100 O2 Delivery Nasal Cannula Nasal Cannula Nasal Cannula Room Air O2 Flow Rate 1.00 1.00 1.00 Height (Feet): 5 Height (Inches): 4.00 Weight (Kilograms): 91.400 General General Appearance: Alert, Well Developed, No Acute Distress Respiratory (Brief) Respiratory Brief: FOUND: non-labored Cardiovascular (Brief) Cardiac: FOUND: calf easily compressible, calf soft, nontender, pedal pulses intact Surgical Site Incision: FOUND: Mepilex dressing intact, no drainage Neurologic (Brief) Neurological Brief: FOUND: extremities w/o deficits, neuro intact Psychiatric (Brief) Psychiatric Brief: FOUND: alert, no acute distress Laboratory Laboratory Laboratory Tests 01/30/17 04:04 Laboratory Tests 01/29/17 08:38 01/30/17 04:04 Assessment & Plan Problems: (1) Degenerative arthritis of hip Status: Chronic Qualifiers: Osteoarthritis type: primary Laterality: left Qualified Codes: M16.12 - Unilateral primary osteoarthritis, left hip Assessment & Plan: Aspirin protocol for VTE prophylaxis. May need to adjust dose if GI bleed is found. BUN 70 / Creat 1.5 and both are stable this AM. K+ 5.5 , will hold K+ sparing diuretic this evening. SCD's and mobilization for added DVT coverage. PT/OT services to improve independent function. Discharge Planning per Case Management. (2) GERD (gastroesophageal reflux disease) Status: Chronic Assessment & Plan: Elevated BUN could be related to GI bleeding. Hgb was 14.4 in September and is 9.1 this AM. Recheck labs this afternoon to monitor trends. She has upper gastric burning at times. Takes Zantac. Uses a NSAID with misoprostol combination to protect her stomach. Check a Hemoccult this AM. Consider hospitalist vs general surgeon consult. Hospital Course Summary Disclaimer The visit summary below is not to be considered part of the above Progress Note. ROBERT MILES Jan 30, 2017 08:57
[2017-01-30] MEDS: FLUTICASONE/SALMETEROL 100/50 DISK INHALER ORAL INH SCH ×2 (09:47→19:10)
[2017-01-30] MEDS: TIOTROPIUM 18mcg/cap HANDIHALER ORAL INH SCH (10:47)
--- NOTE | 2017-01-30 11:06 | NUR ---
IRU referral received. Met with patient and and reviewed programmatic expectations of IRU. Patient states she would prefer to go directly home and is open to IRU if insurance approves. Patient acknowledged need for 3 hours of therapy, 5 days/week. Is motivated to return home independently. CM notified. Will review case with Dr. Ovalle and explore with insurance.
[2017-01-30] MEDS: NORMAL SALINE 1,000 ML IV SCH (12:38)
[2017-01-30 14:59] LABS: HCT - HEMATOCRIT 27.3 % (36-46); HGB - HEMOGLOBIN 8.9 GM/DL (12-16); MEAN CORPUSCULAR HGB 32.6 UUG (26-34); MEAN CORPUSCULAR HGB CONC(MCHC 32.6 GM/DL (31-37); MEAN PLATELET VOLUME 10.2 UM3 (9.4-12.4); RED BLOOD COUNT 2.73 M/MM3 (4.00-5.20); WBC - WHITE BLOOD COUNT 15.9 T/MM3 (4.5-11.0)
[2017-01-30 15:02] LABS: ANION GAP 11 MEQ/L (5-15); BUN/CREATININE RATIO 36 RATIO (6-26); CALCIUM 8.1 MG/DL (8.4-10.2); CHLORIDE 109 MEQ/L (98-107); CO2 - CARBON DIOXIDE 20 MEQ/L (22-30); CREATININE 1.6 MG/DL (0.7-1.2); GLOMERULAR FILTRATION RATE 32; GLUCOSE 145 MG/DL (65-110); POTASSIUM 5.1 MEQ/L (3.6-5); SODIUM 140 MEQ/L (134-144)
--- NOTE | 2017-01-30 20:29 | NUR ---
PROGRESS NOTE THE PT IS ALERT AND ORIENTED X3. VITAL SIGNS STABLE, PT ON RA AT THIS TIME. PT HAS WALKED THE HALLS AND WORKED WITH PHYSICAL THERAPY TODAY. PT IS UP X1 ASSIST BUT HAS UNSTEADY GAIT AT TIMES. PT HAS NOT REQUIRED ANY ADDITIONAL PAIN MEDICATION TO THE SCHEDULED TYLENOL THIS SHIFT. PT HAS IV FLUIDS RUNNING AT 80CC/HR THROUGH A 20G IN HER RIGHT FOREARM PER GILBERT CAMERON DUE TO KIDNEY FUNCTION. PT HAS ICE PACK TO HER LEFT HIP AND SMALL AMOUNT OF DRAINAGE HAS BEEN NOTED THIS SHIFT AND REFINING STILL OPERATOR RN INFORMED TO CONTINUE TO MONITOR. THE PT HAS FAMILY PRESENT IN ROOM, NO OTHER CONCERNS NOTED.
[2017-01-30] MEDS: MONTELUKAST 10 MG TABLET PO SCH (21:27)
[2017-01-30] MEDS: SIMVASTATIN 40 MG TABLET PO SCH (21:27)
[2017-01-30] MEDS: SENNOSIDES 8.6 MG TABLET PO SCH (21:29)
[2017-01-31] VITALS (8 sets, daily range): BP systolic 107–151; BP diastolic 63–85; PULSE 68–78; RESP 16–22; TEMP 96.2–98.3; O2SAT 94–100
[2017-01-31] MEDS: NORMAL SALINE 1,000 ML IV SCH ×2 (01:09→15:38)
--- NOTE | 2017-01-31 05:20 | NUR ---
SHIFT SUMMARY PT ALERT AND ORIENTED X3,VITAL SIGNS STABLE ON ROOM AIR. PT AMBULATES WELL TO AND FROM THE BATHROOM WITH GAIT BELT AND WALKER. PT DENIES C/P,N/V AND SOA. PT HAS HAD ADEQUATE URINE OUTPUT. WILL CONTINUE TO MONITOR.
[2017-01-31 05:38] LABS: HCT - HEMATOCRIT 25.9 % (36-46); HGB - HEMOGLOBIN 8.5 GM/DL (12-16); MEAN CORPUSCULAR HGB 32.8 UUG (26-34); MEAN CORPUSCULAR HGB CONC(MCHC 32.8 GM/DL (31-37); MEAN PLATELET VOLUME 11.2 UM3 (9.4-12.4); RED BLOOD COUNT 2.59 M/MM3 (4.00-5.20); WBC - WHITE BLOOD COUNT 16.6 T/MM3 (4.5-11.0)
[2017-01-31] MEDS: NOZIN NASAL SWAB NS SCH ×3 (05:41→21:06)
[2017-01-31 05:44] LABS: ANION GAP 8 MEQ/L (5-15); BUN/CREATININE RATIO 43 RATIO (6-26); CHLORIDE 111 MEQ/L (98-107); CO2 - CARBON DIOXIDE 22 MEQ/L (22-30); CREATININE 1.2 MG/DL (0.7-1.2); GLOMERULAR FILTRATION RATE 45; GLUCOSE 125 MG/DL (65-110); POTASSIUM 5.2 MEQ/L (3.6-5); SODIUM 141 MEQ/L (134-144)
--- NOTE | 2017-01-31 07:15 | NUR ---
GILBERT EAGLE, IN ROOM FOR PT EVAL/ASSMT
--- NOTE | 2017-01-31 07:41 | PDORTHOPN ---
Subjective Date DATE: 01/31/17 TIME: 07:36 Subjective Florence reports her pain is well controlled on PO meds this AM. She has been up with good tolerance. Denies feeling SOA or having any CP. BUN is 51.0, creatine 1.2 which is improved. Her heartburn has improved. Denies any obvious signs of GI bleeding. Hemoccult was negative. Objective Vital Signs Vital signs Vital Signs 01/30/17 01/30/17 01/31/17 01/31/17 21:00 21:14 00:02 04:07 Temp 97.0 96.9 98.3 Pulse 73 78 75 74 Resp 16 18 16 20 B/P 142/71 128/69 107/64 Pulse Ox 95 96 94 O2 Delivery Room Air Room Air Room Air Height (Feet): 5 Height (Inches): 4.00 Weight (Kilograms): 91.400 General General Appearance: Alert, Well Developed, No Acute Distress Respiratory (Brief) Respiratory Brief: FOUND: non-labored Cardiovascular (Brief) Cardiac: FOUND: calf easily compressible, calf soft, nontender, pedal pulses intact Surgical Site Incision: FOUND: Mepilex dressing intact (small stable area on distal portion of dressing satruated.), no drainage Neurologic (Brief) Neurological Brief: FOUND: extremities w/o deficits, neuro intact Psychiatric (Brief) Psychiatric Brief: FOUND: alert, no acute distress Laboratory Laboratory Laboratory Tests 01/30/17 04:04 01/30/17 14:46 01/31/17 04:32 Laboratory Tests 01/29/17 08:38 01/30/17 04:04 01/30/17 14:46 01/31/17 04:32 Assessment & Plan Problems: (1) Degenerative arthritis of hip Status: Chronic Qualifiers: Osteoarthritis type: primary Laterality: left Qualified Codes: M16.12 - Unilateral primary osteoarthritis, left hip Assessment & Plan: Aspirin protocol for VTE prophylaxis. May need to adjust dose if GI bleed is found. BUN 51.0 / Creat 1.2 and both are improved this AM. K+ 5.2 , improved with holding med. SCD's and mobilization for added DVT coverage. PT/OT services to improve independent function. Discharge Planning per Case Management. (2) GERD (gastroesophageal reflux disease) Status: Chronic Assessment & Plan: Elevated BUN could be related to GI bleeding. Hgb 8.5 today Hemoccult negative reassess labs at noon, if continues to improve may consider discharge. (3) Leukocytosis Status: Acute Assessment & Plan: has been afebrile, but is persistent. reassess lab at noon, draw UA, CXR. Hospital Course Summary Disclaimer The visit summary below is not to be considered part of the above Progress Note. ESTRELLA BAKER Jan 31, 2017 07:39
[2017-01-31] MEDS ORDERED: MILK OF MAGNESIA 30 ML SUSP PO SCH (08:00)
--- NOTE | 2017-01-31 08:17 | NUR ---
RENAL DOSING: RANITIDINE Renal fx has improved. Today's SCr = 1.2mg/dl. Calculated CrCl = 52ml/min. Will adjust Ranitidine dosing back to 150mg po bid. Thank you.
[2017-01-31] MEDS: DOCUSATE SODIUM 100 MG CAPSULE PO SCH ×2 (08:25→21:06)
[2017-01-31] MEDS: ASPIRIN *EC* 325mg TABLET PO SCH ×2 (08:26→21:07)
[2017-01-31] MEDS: ATENOLOL 50 MG TABLET PO SCH ×2 (08:26→21:09)
[2017-01-31] MEDS: GABAPENTIN 300 MG CAPSULE PO SCH ×3 (08:26→21:09)
[2017-01-31] MEDS: POLYETHYL.GLYCOL 3350 PACKET 17gm PO SCH (08:26)
[2017-01-31] MEDS: ACETAMINOPHEN 325 MG TABLET PO SCH ×4 (08:26→21:07)
[2017-01-31] MEDS: RANITIDINE 150 MG TABLET PO SCH ×2 (08:27→21:09)
[2017-01-31] MEDS: CYCLOBENZAPRINE 10 MG TABLET PO SCH ×2 (08:27→21:07)
[2017-01-31] MEDS: TIOTROPIUM 18mcg/cap HANDIHALER ORAL INH SCH (09:00)
--- NOTE | 2017-01-31 09:13 | NUR ---
CM CM IN TO VISIT PATIENT, SHE IS A&O. SPOUSE IS AT THE BEDSIDE. THERE IS AN IRU SCREEN PENDING ON INSURANCE FOR PATIENT, WHEN ASKED ABOUT DISCHARGE PLAN SHE STATES THAT SHE PLANS ON GOING HOME AND THAT WILL BE ABLE TO HELP HER, SHE DID NOT WANT INPATIENT REHAB. PATIENT ALSO DOES NOT WANT HOME HEALTH SERVICES. WILL FOLLOW. THIS CM CONTACT INFORMATION GIVEN.
[2017-01-31] MEDS: FLUTICASONE/SALMETEROL 100/50 DISK INHALER ORAL INH SCH ×2 (09:32→19:24)
--- NOTE | 2017-01-31 10:03 | DI ---
Indication: ITS.REASON: leukocytosis PROCEDURE: CHEST 1 VIEW: Encounter: Initial Comparison: August 26, 2013 FINDINGS: The lungs are clear. There is no abnormal airspace opacity, pleural effusion or pneumothorax identified. The heart size, pulmonary vasculature and mediastinum are within normal limits. IMPRESSION: No acute cardiopulmonary abnormality. .
[2017-01-31 10:58] LABS: BLOOD, URINE NEGATIVE (NEGATIVE); COLOR,URINE YELLOW (YELLOW); LEUKOCYTE ESTERASE ,URINE NEGATIVE (NEGATIVE); NITRITE,URINE NEGATIVE (NEGATIVE); UROBILINOGEN,URINE 0.2 EU/DL (NORMAL)
--- NOTE | 2017-01-31 12:42 | NUR ---
TEACHING problem- BUN level and Chloride level is elevated possibly related to dehydration. intervention- Patient education on drinking more fluids daily. Avoiding pop, tea and extra flavoring added to water. evaluation- Pt. and were able to teach back understanding of education student nurse provided. Addendum: 01/31/17 at 1252 by DARREN DEL ROSARIO Amended: Links added.
[2017-01-31 13:11] LABS: HCT - HEMATOCRIT 27.5 % (36-46); HGB - HEMOGLOBIN 8.9 GM/DL (12-16); MEAN CORPUSCULAR HGB 32.7 UUG (26-34); MEAN CORPUSCULAR HGB CONC(MCHC 32.4 GM/DL (31-37); MEAN CORPUSCULAR VOLUME 101.1 UM3 (80-100); MEAN PLATELET VOLUME 10.3 UM3 (9.4-12.4); RED BLOOD COUNT 2.72 M/MM3 (4.00-5.20); WBC - WHITE BLOOD COUNT 17.7 T/MM3 (4.5-11.0)
--- NOTE | 2017-01-31 13:30 | NUR ---
[facility] Student nurse documentation reviewed by this nursing home manager.
[2017-01-31 13:39] LABS: BAND NEUTROPHILS # 0.2 T/MM3; EOSINOPHILS # (MANUAL) 0.2 T/MM3 (0-0.5); LYMPHOCYTES # (MANUAL) 2.7 T/MM3 (1-4.8); MONOCYTES # (MANUAL) 1.2 T/MM3 (0-0.8); NEUTROPHILS #(MANUAL)-ABSOLUTE 13.5 T/MM3 (1.8-7.7); TOTAL CELLS COUNTED 100 %
[2017-01-31 14:24] LABS: ANION GAP 5 MEQ/L (5-15); BUN/CREATININE RATIO 33 RATIO (6-26); CALCIUM 8.2 MG/DL (8.4-10.2); CHLORIDE 112 MEQ/L (98-107); CO2 - CARBON DIOXIDE 24 MEQ/L (22-30); CREATININE 1.2 MG/DL (0.7-1.2); GLOMERULAR FILTRATION RATE 45; GLUCOSE 161 MG/DL (65-110); POTASSIUM 4.9 MEQ/L (3.6-5); SODIUM 141 MEQ/L (134-144)
--- NOTE | 2017-01-31 14:28 | NUR ---
SURGEON CONTACT DR. DENTON IN ROOM FOR PT EVAL/ASSMT
--- NOTE | 2017-01-31 19:29 | NUR ---
SUMMARY PT VERBALIZED UNDERSTANDING NEED TO STAY ANOTHER NIGHT R/T LAB RESULTS. SHARED THESE WITH HER THROUGHOUT THE DAY THEY WERE AVAILABLE. PT ABLE TO BE UP WITH ASSIST OF 1 USING GB AND WALKER. STATES PAIN IS WELL MANAGED BY TYLENOL. VERBALIZES THAT SHE IS GLAD TO KNOW SHE "HAS A BACK UP" PAIN MED IF NEEDED. PT VOIDING ADEQUATELY. TOLERATES SOLID FOOD WITHOUT N/V. AT BEDSIDE THROUGHOUT THE DAY. DRAINAGE ON DRESSING MARKED.
[2017-01-31] MEDS ORDERED: BISACODYL 10 MG SUPPOSITORY RECTALLY SCH (20:00)
--- NOTE | 2017-01-31 20:45 | NUR ---
Ambulation RN encouraged pt to ambulate. Pt hesitant. Requested to use the restroom. While the pt was up, RN heavily encouraged activity. Pt agreeable. Walked with RN assist x1, gait belt, walker. From room 113 to [facility] and back to room. Steady gait. Rates pain a 4/10. Denies need for additional medication to scheduled Tylenol.
[2017-01-31] MEDS: SIMVASTATIN 40 MG TABLET PO SCH (21:09)
[2017-01-31] MEDS: SENNOSIDES 8.6 MG TABLET PO SCH (21:09)
[2017-01-31] MEDS: MONTELUKAST 10 MG TABLET PO SCH (21:09)
[2017-02-01 00:13] VITALS: BP 151/69; PULSE 122; RESP 18; TEMP 97; O2SAT 97
[2017-02-01] MEDS: OXYCODONE I.R. 5 MG TABLET PO PRN ×3 (00:21→13:48)
[2017-02-01 03:38] VITALS: BP 155/81; PULSE 76; RESP 22; TEMP 98.4; O2SAT 92
[2017-02-01] MEDS: NORMAL SALINE 1,000 ML IV SCH (04:33)
--- NOTE | 2017-02-01 05:37 | NUR ---
Shift Summary Pt slept off and on during the night. C/o pain mostly to right shoulder. PRN Katherine administered. Pillow placed under right shoulder for support. Bruising to left hip, dressing has small spot of drainage circled - unchanged. Pt's , Luis, remained at bedside. VSS. Ambulated with RN assist x1, gait belt, walker. Ice pack in place. Up to restroom several times.
[2017-02-01 05:40] LABS: HCT - HEMATOCRIT 25.7 % (36-46); HGB - HEMOGLOBIN 8.3 GM/DL (12-16); MEAN CORPUSCULAR HGB 32.7 UUG (26-34); MEAN CORPUSCULAR HGB CONC(MCHC 32.3 GM/DL (31-37); MEAN CORPUSCULAR VOLUME 101.2 UM3 (80-100); MEAN PLATELET VOLUME 10.9 UM3 (9.4-12.4); RED BLOOD COUNT 2.54 M/MM3 (4.00-5.20); WBC - WHITE BLOOD COUNT 17.6 T/MM3 (4.5-11.0)
[2017-02-01] MEDS: NOZIN NASAL SWAB NS SCH ×2 (06:19→13:48)
[2017-02-01 06:52] LABS: ANION GAP 6 MEQ/L (5-15); BUN/CREATININE RATIO 32 RATIO (6-26); CALCIUM 8.3 MG/DL (8.4-10.2); CHLORIDE 111 MEQ/L (98-107); CO2 - CARBON DIOXIDE 25 MEQ/L (22-30); GLOMERULAR FILTRATION RATE 56; GLUCOSE 148 MG/DL (65-110); POTASSIUM 5.5 MEQ/L (3.6-5); SODIUM 142 MEQ/L (134-144)
--- NOTE | 2017-02-01 08:02 | PDORTHOPN ---
Subjective Date DATE: 02/01/17 TIME: 07:57 Subjective Florence reports her pain is well controlled on PO meds this AM. She has been up with good tolerance. Denies feeling SOA or having any CP. BUN is 32.0, creatine 1.0 which is improved. Her heartburn has resolved. Denies any obvious signs of GI bleeding. Hemoccult was negative. Yesterday we kept her due to persistent increase white cell count. She has now stabilized at 17.6. She continues to deny sore throat, abdominal pain, dysuria , etc. Review of her past history with Jovanny Christopher PA-C revealed that their has been clinical suspicion of RA in the past, but despite seeing a Air Traffic Coordinator, has not been diagnosed. K is 5.5 today, plan to redraw lab. Objective Vital Signs Vital signs Vital Signs 01/31/17 01/31/17 02/01/17 02/01/17 20:00 20:01 00:13 03:38 Temp 96.2 97.0 98.4 Pulse 75 75 122 76 Resp 20 22 18 22 B/P 122/68 151/69 155/81 Pulse Ox 100 97 92 O2 Delivery Room Air Room Air Room Air Height (Feet): 5 Height (Inches): 4.00 Weight (Kilograms): 91.400 General General Appearance: Alert, Orientated x 3, Well Nourished, Disorientated, Well Developed, No Acute Distress Respiratory (Brief) Respiratory Brief: FOUND: non-labored Cardiovascular (Brief) Cardiac: FOUND: calf easily compressible, calf soft, nontender, pedal pulses intact Surgical Site Incision: FOUND: Mepilex dressing intact (small stable area on distal portion of dressing satruated.), no drainage Neurologic (Brief) Neurological Brief: FOUND: extremities w/o deficits, neuro intact Psychiatric (Brief) Psychiatric Brief: FOUND: alert, no acute distress Laboratory Laboratory Laboratory Tests 01/30/17 14:46 01/31/17 04:32 01/31/17 12:57 02/01/17 04:56 Laboratory Tests 01/30/17 14:46 01/31/17 04:32 01/31/17 14:09 02/01/17 04:56 Assessment & Plan Problems: (1) Degenerative arthritis of hip Status: Chronic Qualifiers: Osteoarthritis type: primary Laterality: left Qualified Codes: M16.12 - Unilateral primary osteoarthritis, left hip Assessment & Plan: Aspirin protocol for VTE prophylaxis. May need to adjust dose if GI bleed is found. BUN Creat and both are improved this AM. K+ 5.5 , will redraw lab. SCD's and mobilization for added DVT coverage. PT/OT services to improve independent function. Discharge Planning per Case Management. (2) GERD (gastroesophageal reflux disease) Status: Chronic Assessment & Plan: Elevated BUN could be related to GI bleeding. Hgb 8.5 today Hemoccult negative reassess labs at noon, if continues to improve may consider discharge. (3) Leukocytosis Status: Acute Assessment & Plan: has been afebrile, UA and CXR were negative. Hospital Course Summary Disclaimer The visit summary below is not to be considered part of the above Progress Note. ESTRELLA BAKER Feb 01, 2017 08:01
[2017-02-01] MEDS: POLYETHYL.GLYCOL 3350 PACKET 17gm PO SCH (08:52)
[2017-02-01] MEDS: ATENOLOL 50 MG TABLET PO SCH (08:53)
[2017-02-01] MEDS: CYCLOBENZAPRINE 10 MG TABLET PO SCH (08:54)
[2017-02-01] MEDS: DOCUSATE SODIUM 100 MG CAPSULE PO SCH (08:54)
[2017-02-01] MEDS: GABAPENTIN 300 MG CAPSULE PO SCH (08:54)
[2017-02-01 08:55] VITALS: PULSE 76; RESP 16
[2017-02-01] MEDS: ASPIRIN *EC* 325mg TABLET PO SCH (08:55)
[2017-02-01] MEDS: ACETAMINOPHEN 325 MG TABLET PO SCH ×2 (08:55→13:36)
[2017-02-01] MEDS: RANITIDINE 150 MG TABLET PO SCH (08:55)
[2017-02-01] MEDS ORDERED: OXYC5TAB84 PO (08:57)
[2017-02-01] MEDS ORDERED: ASPI-917 PO (08:57)
[2017-02-01] MEDS ORDERED: POLY17PO18 PO (08:57)
[2017-02-01 09:10] VITALS: BP 145/70; PULSE 88; RESP 16; TEMP 98.4; O2SAT 100
[2017-02-01] MEDS: FLUTICASONE/SALMETEROL 100/50 DISK INHALER ORAL INH SCH (09:44)
[2017-02-01] MEDS: TIOTROPIUM 18mcg/cap HANDIHALER ORAL INH SCH (10:10)
--- NOTE | 2017-02-01 10:12 | NUR ---
CHARO CM IN TO VISIT WITH PT. SHE IS ALERT AND ORIENTED. SHE PLANS TO DC HOME WITH SPOUSE. SHE IS HOPEFUL THAT IT WILL BE TODAY. SHE HAS FWW AND HIP KIT. SHE WILL DO OUTPT PT AT [facility].
[2017-02-01 12:10] VITALS: BP 135/84; PULSE 79; RESP 18; TEMP 97.7; O2SAT 98
[2017-02-01 12:40] LABS: ANION GAP 7 MEQ/L (5-15); BUN/CREATININE RATIO 28 RATIO (6-26); CALCIUM 8.5 MG/DL (8.4-10.2); CHLORIDE 112 MEQ/L (98-107); CO2 - CARBON DIOXIDE 24 MEQ/L (22-30); GLOMERULAR FILTRATION RATE 56; GLUCOSE 157 MG/DL (65-110); SODIUM 143 MEQ/L (134-144)
--- NOTE | 2017-02-01 13:16 | DSPDOC ---
General Date Date DATE: 02/01/17 TIME: 13:09 Attending Physician Lang Horvath MD Admitting Physician Lang Horvath MD Consulting Physician Admitting Diagnosis PRIMARY DEGENERATIVE JOINT DISEASE LEFT HIP Discharge Diagnosis primary DJD left hip Procedures left total hip arthroplasty Diagnosis left hip primary DJD History of Present Illness HPI Elements This patient was admitted for elective surgical tx of end stage degenerative joint disease that failed to respond to conservative treatment. Further details of this is found in the admission H&P. Hospital Course After appropriate preoperative clearance and signing of operative consent, the patient was given IV antibiotics, according to orthopedic protocol. The patient was taken to the operating room and underwent elective joint arthroplasty. Following surgery, antibiotics were discontinued less than 24 hours according to joint protocol. Appropriate anticoagulants were initiated and SCDs added for DVT prevention. The dressing was clean, dry, and intact. Pain control was obtained via multimodal approach. Bowel motivation addressed with scheduled and PRN medications. Early mobilization was initiated through PT services. Discharge arrangements made by a collaborative effort between the patient and Case Management. Follow-up is scheduled in 2-3 weeks. Discharge instructions given by orthopedic providers and nursing staff at discharge. Discharge condition was good. Problems: (1) Degenerative arthritis of hip Status: Chronic Assessment & Plan: Aspirin protocol for VTE prophylaxis. BUN Creat and both are improved this AM. K+ 5.5 , will redraw lab. Afternoon lab shows K at 5.0 SCD's and mobilization for added DVT coverage. PT/OT services to improve independent function. Discharge Planning per Case Management. (2) GERD (gastroesophageal reflux disease) Status: Chronic Assessment & Plan: Hemoccult negative (3) Leukocytosis Status: Acute Assessment & Plan: has been afebrile, UA and CXR were negative. Associated Postoperative Event: Acute P.O. Anemia Ongoing Care Required?: Yes hyperkalemia and elevated BUN/Creatine as well as leukocytosis Acute P.O. Anemia: Patient received IVF, No intervention required, HGB drop- acceptable range Leukocytosis: d/t IV Decadron preop, d/t surg. stress response Other Postoperative Events: The patient devloped hyperkalemia, Lisinopril and Sprionolactone were held. K improved over time with serial monitoring. Recommendation to follow up with Dr. Pace within a week to re evaluate if Lisinopril and Sprionolactone need to be re implemented. BP was stable throughout. In addition BUN and Creatine were elevated post op, Lisinopril was held and labs showed consistent improvement with serial monioring. Laboratory Laboratory Tests Test 01/31/17 14:09 02/01/17 04:56 02/01/17 12:09 Turbidity < 20 < 20 < 20 Sodium Level 141MEQ/L 142MEQ/L 143MEQ/L Potassium Level 4.9MEQ/L 5.5MEQ/L 5.0MEQ/L Chloride Level 112MEQ/L 111MEQ/L 112MEQ/L Carbon Dioxide Level 24MEQ/L 25MEQ/L 24MEQ/L Anion Gap 5MEQ/L 6MEQ/L 7MEQ/L Blood Urea Nitrogen 40.0MG/DL 32.0MG/DL 28.0MG/DL Creatinine 1.2MG/DL 1.0MG/DL 1.0MG/DL Glomerular Filtration Rate Calc 45 56 56 BUN/Creatinine Ratio 33RATIO 32RATIO 28RATIO Glucose Level 161MG/DL 148MG/DL 157MG/DL Calculated Osmolality 284MOSM/KG 283MOSM/KG 284MOSM/KG Calcium Level 8.2MG/DL 8.3MG/DL 8.5MG/DL Icterus Index < 2 < 2 < 2 Chemistry Specimen Hemolysis < 15 < 15 < 15 White Blood Count 17.6T/MM3 Red Blood Count 2.54M/MM3 Hemoglobin 8.3GM/DL Hematocrit 25.7% Mean Corpuscular Volume 101.2UM3 Mean Corpuscular Hemoglobin 32.7UUG Mean Corpuscular Hemoglobin Concent 32.3GM/DL RDW Standard Deviation 48.7FL Platelet Count 194T/MM3 Mean Platelet Volume 10.9UM3 Home Meds Active Scripts Polyethylene Glycol 3350 (Healthylax) 17 Gm Powd.pack, 17 G PO DAILY, #30 PACKET Prov:ESTRELLA BAKER 02/01/17 Oxycodone HCl (Oxycodone HCl) 5 Mg Tablet, 5-15 MG PO Q3H Y for BREAKTHROUGH PAIN, #60 TAB Prov:ESTRELLA BAKER 02/01/17 Aspirin *EC* (Aspirin EC) 325 Mg Tablet.dr, 325 MG PO BID, #84 TAB Prov:ESTRELLA BAKER 02/01/17 Reported Medications Hydrochlorothiazide (Hydrochlorothiazide) 25 Mg Tablet, 1 TAB PO DAILY 01/02/17 Calcium Carbonate/Vitamin D3 (Calcium + Vitamin D Tablet) 1 Each Tablet, 1 TAB PO DAILY 01/02/17 Albuterol Sulfate (Albuterol Sulfate) 2.5 Mg/3 Ml Vial.neb, 1 VIAL AEROSOL Q6HPRN Y for SHORTNESS OF AIR/WHEEZING 01/02/17 Fluticasone/Salmeterol (Advair 100-50 Diskus) 1 Disk W/Dev Inhaler, 1 PUFF ORAL INH RTBID for SHORTNESS OF AIR/WHEEZING, INHALER 11/08/16 Tiotropium Jemison (Spiriva) 1 Cap Inhaler, 1 CAP ORAL INH DAILY, INHALER Place 1 capsule into inhaler , puncture and inhale one time a day. 11/08/16 Montelukast Sodium (Singulair) 10 Mg Tablet, 10 MG PO HS, TAB Take 1 tablet, by mouth, one time a day (at bedtime). 11/08/16 Acetaminophen (Non-Aspirin) 325 Mg Tablet, 650 MG PO Q6H Y for PAIN 01/13/16 Gabapentin (Gabapentin) 300 Mg Capsule, 600 MG PO TID 01/13/16 Cyclobenzaprine HCl (Cyclobenzaprine HCl) 10 Mg Tablet, 10 MG PO BID 01/13/16 Atenolol (Atenolol) 50 Mg Tablet, 50 MG PO BID 01/13/16 Albuterol Sulfate (Ventolin HFA 90 mcg/actuation) 18 Gm Hfa.aer.ad, 1 PUFF INH Q6HPRN Y for SHORTNESS OF AIR/WHEEZING 01/13/16 Simvastatin (Simvastatin) 40 Mg Tablet, 40 MG PO HS 01/13/16 Diclofenac Sodium/Misoprostol (Diclofenac-Misoprost 50-200 Tb) 1 Each Tab.ir.dr , 1 TAB PO 1400&HS Y for PAIN 01/13/16 Ranitidine HCl (Ranitidine HCl) 150 Mg Tablet, 150 MG PO BID 01/13/16 Discontinued Reported Medications Oxycodone HCl/Acetaminophen (Oxycodon-Acetaminophen 7.5-325) 7.5-325 Tablet, 1 TAB PO DAILY Y for PAIN, #60 01/28/17 Spironolactone (Spironolactone) 25 Mg Tablet, 25 MG PO HS, TAB 11/08/16 Lisinopril (Lisinopril) 40 Mg Tablet, 40 MG PO HS 01/13/16 Estrogens,Conjugated (Premarin) 0.3 Mg Tablet, 0.3 MG PO DAILY 08/26/13 Discharge Disposition Please refer to Case Management Notes for patient's disposition. Copies To 1: Cathleen PACE MD Estimated Blood Loss 200.0 ESTRELLA BAKER Feb 01, 2017 13:13
--- NOTE | 2017-02-01 13:50 | NUR ---
TEACHING WENT OVER NEED TO DRINK WATER, REDUCING USE OF GATORADE AND TEA. PT AND ABLE TO VERBALIZE UNDERSTANDING OF TEACHING. POINTED OUT THAT SHE WAS STILL DRINKING MORE GATORADE THAN WATER AFTER HAVING SAME DISCUSSING WITH HER YESTERDAY. "OH, YEAH! I FORGOT!"
--- NOTE | 2017-02-01 14:14 | NUR ---
DISMISSAL WENT OVER WRITTEN DISMISSAL INSTRUCTIONS WITH PT AND PT'S INCLUDING DIET, ACTIVITY/RESTRICTIONS, WOUND CARE, MED CHANGES, F/U APPTS AND P.T. APPTS. BOTH VERBALIZED UNDERSTANDING. PT'S PERSONAL BELONGINGS GATHERED INCLUDING CELL PHONE AND CAP SEWER, AND SCRIPTS. PT TAKEN OUT OF S.U. PER W/C BY MARGARITA STUDENT NURSE TO FRONT ENTRANCE FOR TRANSPORT HOME BY .
== END 2017-02-01 14:14 | disposition home or self-care (01) | DRG 470 ==
LOC: SRG 01-29 08:15
PROVIDERS: ADMIT Orthopaedic Surgery; ATTEND Orthopaedic Surgery
PROC: 0SRB04A Replacement of Left Hip Joint with Ceramic on Polyethylene Synthetic Substitute, Uncemented, Open Approach (ICD-10-PCS; principal; 2017-01-29 10:56)
DX: M16.12 Unilateral primary osteoarthritis, left hip (principal); M87.852 Other osteonecrosis, left femur; Z96.641 Presence of right artificial hip joint; Z96.653 Presence of artificial knee joint, bilateral; M81.0 Age-related osteoporosis without current pathological fracture; D64.9 Anemia, unspecified; D72.829 Elevated white blood cell count, unspecified; E87.5 Hyperkalemia; R79.89 Other specified abnormal findings of blood chemistry; K21.9 Gastro-esophageal reflux disease without esophagitis; F17.210 Nicotine dependence, cigarettes, uncomplicated; J44.9 Chronic obstructive pulmonary disease, unspecified; I10 Essential (primary) hypertension; G89.29 Other chronic pain; E78.00 Pure hypercholesterolemia, unspecified
CPT/HCPCS: 36415; 80048; 81003; 82272; 85025; 85027; 94640; 94762

== ENCOUNTER → 2017-01-14 | Outpatient (CLI) | payer MEDICAID ==
[~2017-01-14] MED LIST changes: +ALBU2.5V7 INH; +CALC-191 PO; +FLUT1DIS ORAL INH; +HYDR25TA PO; +LIDOCAINE 1% (10mg/ml) 5ml VIAL ONE; +MONT10TA22 PO; +SPIR25TA4 PO; +TIOT18CA3 ORAL INH
[2017-01-14 16:10] LABS: BODY FLUID TYPE SYNOVIAL FLUID; LYMPHOCYTES,BODY FLUID 72 %; MONOCYTES,BODY FLUID 16 %; NEUTROPHILS,BODY FLUID 12 %
[2017-01-14 16:11] LABS: BASOPHILS,BODY FLUID 0 %; EOSINOPHILS,BODY FLUID 0 %
--- NOTE | 2017-01-14 16:41 | DI ---
INDICATION: ITS.REASON: M16.12 Unilateral primary osteoarthritis, left hip INJECTION /DRN HIP LT W/FLUORO: LEFT HIP ASPIRATION: The procedure including the benefits, risks, and alternatives were explained in detail to the patient. All of their questions were answered. They stated that they understood and wished to proceed. Informed consent was obtained. A pre-procedural timeout was done to verify the patient and proper procedure. Using sterile technique, local Xylocaine anesthesia, and fluoroscopic guidance, a 22-gauge spinal needle was advanced into the left hip. A fluoroscopic image was taken and archived. Approximately 17 cc of honey-colored fluid was aspirated from the left hip in three separate syringes. The samples were sent to lab for the requested studies. The needle was then removed. The procedure was completed without complication. Following this, the patient left the imaging department in stable condition. Impression: Successful left hip aspiration performed with 17 cc of honey-colored fluid removed and sent to lab. Fluoroscopy dose: 39.06 mGy (Cumulative air kerma) Bowen Ulloa RPA/IRIS performed this under my personal supervision .
== END ==
LOC: IMA 13:34
PROVIDERS: ATTEND Orthopaedic Surgery
DX: M16.12 Unilateral primary osteoarthritis, left hip (principal)
CPT/HCPCS: 87070; 89051

== ENCOUNTER → 2017-01-25 | Outpatient (CLI) | payer MEDICAID ==
[~2017-01-25] MED LIST changes: +ALBU2.5V7 AEROSOL; -ALBU2.5V7 INH; -LIDOCAINE 1% (10mg/ml) 5ml VIAL ONE; +OXYC-532 PO
[2017-01-25 12:18] LABS: BODY FLUID TYPE SYNOVIAL FLUID
[2017-01-25 12:30] LABS: LYMPHOCYTES,BODY FLUID 8 %; NEUTROPHILS,BODY FLUID 87 %
[2017-01-25 12:31] LABS: BASOPHILS,BODY FLUID 0 %; EOSINOPHILS,BODY FLUID 0 %; MONOCYTES,BODY FLUID 0 %
== END ==
LOC: LABN 11:23
PROVIDERS: ATTEND Physician Assistant Surgical
DX: M25.511 Pain in right shoulder (principal)
CPT/HCPCS: 87070; 89051; 89060

== ENCOUNTER 2017-02-25 11:20 | Emergency (ER) | payer MEDICAID ==
[~2017-02-25] VITALS: Ht 162.6 cm; Wt 83.6 kg
[~2017-02-25 11:20] MED LIST changes: +ASPI-917 PO; -ESTR0.3T26 PO; -LISI40TA4 PO; -OXYC-532 PO; +OXYC5TAB84 PO; +POLY17PO18 PO; -SPIR25TA4 PO
[2017-02-25 11:22] VITALS: TEMP 97.9; Ht 162.6 cm; Wt 83.6 kg
--- OUTSIDE RECORDS SUMMARY | 2017-02-25 11:24 | XMS REPORT | Continuity of Care Document ---
Author Author [facility] Organization [facility] Address Unknown Phone Unavailable Allergies Active Description Code Type Severity Reaction Onset Reported/Identified Relationship to Patient Clinical Status Yes Amlodipine [id number] Drug Allergy Moderate rash Medications Problems Date Dx Coded Attending Type Code Diagnosis Diagnosed By 12/28/2015 Franc Pace MD 708.8 Urticaria, other 12/28/2015 Franc Pace MD 305.1 Tobacco use disorder 12/28/2015 Franc Pace MD 715.00 Generalized osteoarthritis, site unspecified 12/28/2015 Franc Pace MD 715.15 Osteoarthritis of hip 12/28/2015 Franc Pace MD 401.1 HTN 01/17/2016 Franc Pace MD 786.2 Cough 01/18/2016 Franc Pace MD 486 Community acquired pneumonia 01/18/2016 Franc Pace MD 486 Community acquired pneumonia 01/26/2016 Franc Pace MD 401.1 Essential hypertension 01/27/2016 Franc Pace MD 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/2016 Franc Pace MD 780.99 chronic pain 04/05/2016 Franc Pace MD 692.6 Poison destini 06/25/2016 Franc Pace MD 496 COPD 10/23/2016 Franc Pace MD V72.83 Preoperative examination - other specified 10/24/2016 Franc Pace MD 715.15 Hip DJD 11/12/2016 Franc Pace MD 786.2 Cough 02/04/2017 Franc Pace MD V67.09 Follow-up exam following other surgery 02/05/2017 Franc Pace MD 530.81 GERD 02/05/2017 Franc Pace MD 719.41 Shoulder pain Procedures Code Description [place] [address] Immunization administration; one vaccine 12/28/2015 85466 Therapeutic, prophylatic or diagnostic injection (specify substance or drug ); subcutaneous or intram 12/28/2015 [id number] Followup appointment in 3 weeks 12/28/2015 CHART Obtain previous records from outside facility 12/28/2015 82985 Office visit - new pt, level 3 12/28/2015 TCARE1 Transfer of Care from Emergency Department 01/17/2016 [id number] Follow up appointment in 10 days 01/18/2016 07052 Office/outpatient visit; established patient, level 4 01/18/2016 TCARE1 Transfer of Care from Emergency Department 01/26/2016 18519 Collection of venous blood by venipuncture 01/27/2016 29875 Comprehensive metabolic panel (Albumin, Bilirubin, Ca, CO2, Cl, Creatinine , Glu, alkaline phosphatas 01/27/2016 18322 Complete blood count (CBC), automated (Hgb, Hct, RBC, WBC, platelets) and automated differential WBC 01/27/2016 40672 Sedimentation rate, non-automated 01/27/2016 32005 Antinuclear antibodies titer 01/27/2016 66168 Rheumatoid factor, quantitative 01/27/2016 [id number] Follow up appointment in 2 months 01/27/2016 75486 Office/outpatient visit; established patient, level 4 01/27/2016 10790 Therapeutic, prophylatic or diagnostic injection (specify substance or drug ); subcutaneous or intram 04/05/2016 20314 Office/outpatient visit; established patient, level 3 04/05/2016 29142 Collection of venous blood by venipuncture 06/25/2016 08223 Comprehensive metabolic panel (Albumin, Bilirubin, Ca, CO2, Cl, Creatinine , Glu, alkaline phosphatas 06/25/2016 18400 Complete blood count (CBC), automated (Hgb, Hct, RBC, WBC, platelets) and automated differential WBC 06/25/2016 47018 Sedimentation rate, non-automated 06/25/2016 73291 Antinuclear antibodies titer 06/25/2016 15312 Rheumatoid factor, quantitative 06/25/2016 07370 Office/outpatient visit; established patient, level 4 06/25/2016 [id number] Follow up appointment in 2 months 06/25/2016 [id number] Followup appointment in 3 weeks 06/26/2016 03884 Immunization administration; one vaccine 06/26/2016 28675 Influenza virus vaccine, split virus, for use in individuals 3 years + age , for IM use 2015 29953 Immunization administration; one vaccine 07/30/2016 71734 Influenza virus vaccine, split virus, for use in individuals 3 years + age , for IM use 2015 82416 Office/outpatient visit; established patient, level 4 07/30/2016 [id number] Followup appointment in 3 weeks 07/30/2016 10267 Collection of venous blood by venipuncture 07/31/2016 80268 Basic metabolic panel (Ca, CO2, Cl, Creatinine, Glu, K, Na, BUN) 07/31/2016 [id number] Follow up appointment in 6 weeks 07/31/2016 96524 Collection of venous blood by venipuncture 09/12/2016 64783 Basic metabolic panel (Ca, CO2, Cl, Creatinine, Glu, K, Na, BUN) 09/12/2016 06841 Office/outpatient visit; established patient, level 4 09/12/2016 [id number] Follow up appointment in 6 weeks 09/12/2016 REFER Set up patient referral to a [employer] consultant 09/12/2016 REFER Set up patient referral to a [employer] consultant 09/12/2016 REFER Set up patient referral to a [employer] consultant 09/12/2016 81589 Collection of venous blood by venipuncture 10/24/2016 98315 Radiologic examination, chest, two views, frontal and lateral 10/24/2016 02187 Comprehensive metabolic panel (Albumin, Bilirubin, Ca, CO2, Cl, Creatinine , Glu, alkaline phosphatas 10/24/2016 97356 Electrocardiogram, routine with at least 12 leads; with interpretation and report 10/24/2016 A4556 EKG electrodes 90657 Office/outpatient visit; established patient, level 4 10/24/2016 52808 Therapeutic, prophylactic or diagnostic injection; subcutaneous or intramuscular 2016 [id number] Ceftriaxone Sodium, per 250 mg 11/12/2016 66733 Office/outpatient visit; established patient, level 3 11/12/2016 [id number] Followup appointment in 3 weeks 02/05/2017 00123 Immunization administration; one vaccine 02/05/2017 KARIME Preauthorize the zostax immunization 02/05/2017 04286 Office/outpatient visit; established patient, level 3 02/05/2017 Results Encounters ACCT No. Visit Date/Time Discharge Status Pt. Type Provider Facility Loc./Unit Complaint [id number] 02/05/2017 15:17:01 2016 15:46:46 DIS Outpatient Sanjeev PETER, Franc [facility]
--- OUTSIDE RECORDS SUMMARY | 2017-02-25 11:24 | XMS REPORT | Continuity of Care Document ---
Author Author [facility] Organization [facility] Address Unknown Phone Unavailable Care Team Providers Care Tree Trimming Line Technician Name Role Phone Cathleen TABOR MD Primary Care Physician [phone] Insurance Providers Guarantor Florence Ely Address [address] [phone] CP Email DENIED [phone] Payer [facility] Policy Number [id number] Subscriber's Name NitinSueFlorence A Relationship 18 Self Effective Date 17 Expiration Date 17 Advance Directives Directive Response Recorded Date/Time Ordered Resuscitation Status Full Code 01/28/17 2:55pm Resuscitation Documents on File No 01/29/17 1:41pm DPOA for Healthcare Only No 01/29/17 1:41pm Living Will No 01/29/17 1:41pm Advance Directive Consult Information Given 01/30/17 8:41am Problems Active Problems Medical Problem Onset Date Status Degenerative arthritis of hip Unknown Chronic GERD (gastroesophageal reflux disease) Unknown Chronic Hyperlipemia Unknown Hypertension Unknown Leukocytosis Unknown Acute Obesity (BMI 30-39.9) Unknown Osteoarthritis Unknown Past Problems Medical Problem Onset Date Essential hypertension Unknown Hypertension not otherwise specified Unknown Poorly-controlled hypertension Unknown Medications Current Home Medications Medication Dose Units Route Directions Days Qty Instructions Start Date Acetaminophen (Non-Aspirin) 325 Mg Tablet 650 Mg Oral Every 6 Hours as needed for Pain 01/13/16 Albuterol Sulfate 2.5 Mg/3 Ml Vial.neb 1 Vial Aerosol Tx. Every 6 Hr Prn as needed for Shortness Of Air/Wheezing 01/02/17 Albuterol Sulfate (Ventolin Hfa 90 Mcg/Actuation) 18 Gm Hfa.aer.ad 1 Puff Inhalation Every 6 Hr Prn as needed for Shortness Of Air/Wheezing Aspirin (Aspirin Ec) 325 Mg Tablet. 325 Mg Oral Twice A Day 84 Tablet 02/01/17 Atenolol 50 Mg Tablet 50 Mg Oral Twice A Day 01/13/16 Calcium Carbonate/Vitamin D3 (Calcium + Vitamin D Tablet) 1 Each Tablet 1 Tab Oral Daily 01/02/17 Cyclobenzaprine Hcl 10 Mg Tablet 10 Mg Oral Twice A Day 01/13/16 Diclofenac Sodium/Misoprostol (Diclofenac-Misoprost 50-200 Tb) 1 Each Tab.ir. 1 Tab Oral 1400&Hs as needed for Pain 01/13/16 Fluticasone/Salmeterol (Advair 100-50 Diskus) 1 Disk W/Dev Inhaler 1 Puff Oral Inhalation Resp.tx Twice A Day for Shortness Of Air/Wheezing 10/13 Gabapentin 300 Mg Capsule 600 Mg Oral Three Times A Day 01/13/16 Hydrochlorothiazide 25 Mg Tablet 1 Tab Oral Daily 01/02/17 Montelukast Sodium (Singulair) 10 Mg Tablet 10 Mg Oral Bedtime Take 1 tablet, by mouth, one time a day (at bedtime). 11/08/16 Oxycodone Hcl 5 Mg Tablet 5-15 Mg Oral Every 3 Hours as needed for Breakthrough Pain 60 Tablet 02/01/17 Polyethylene Glycol 3350 (Healthylax) 17 Gm Powd.pack 17 G Oral Daily 30 Packet 02/01/17 Ranitidine Hcl 150 Mg Tablet 150 Mg Oral Twice A Day 01/13/16 Simvastatin 40 Mg Tablet 40 Mg Oral Bedtime 01/13/16 Tiotropium [place] (Spiriva) 1 Cap Inhaler 1 Cap Oral Inhalation Daily Place 1 capsule into inhaler , puncture and inhale one time a day. 11/08/16 Past Home Medications Medication Directions Ordered Status Acetaminophen (Tylenol Arthritis) 650 Mg Tablet.sa, 1300 Mg Oral As Needed Discontinued Amox Tr/Potassium Clavulanate (Augmentin 875-125 Tablet) 1 Tab Tablet, 1 Tab Oral Twice A Day 07/11/10 Discontinued Ascorbic Acid (Vitamin C) 500 Mg Tablet, 100 Mg Oral Daily 07/11/10 Discontinued Aspirin 81 Mg Tablet, 81 Mg Oral Daily 02/08/11 Discontinued Aspirin (Aspirin Ec) 81 Mg Tablet., 07/10/10 Discontinued Aspirin (Adult Low Strength) 81 Mg Tablet., 1 Tab Oral Daily 09/24/09 Discontinued Black Cohosh , 1 Cap Oral Twice A Day 08/29/09 Discontinued Calcium Carbonate/Vitamin D3 (Calcium + D 600 Mg Tablet) 1 Tab Tablet, 1 Tab Oral Twice A Day 07/11/10 Discontinued Estrogens,Conjugated (Premarin) 0.3 Mg Tablet, 0.3 Mg Oral Daily 08/26/13 Discontinued Ferrous Sulfate (Iron) 1 Tab Tablet, 1 Tab Oral Daily 07/11/10 Discontinued Gluc Hcl/Csa/Miriam Hy/Hyalur Ac (Glucosamine Chondroitin Cap) 1 Cap Capsule, 1 Cap Oral Twice A Day 03/12/09 Discontinued Hydrocodone Bit/Acetaminophen (Lortab 5/500 Tablet) 1 Tab Tablet, 1 Tab Oral As Needed 07/11/10 Discontinued Hydrocodone Bit/Acetaminophen (Lortab 7.5) 1 Udtab Tablet, 1 Udtab Oral As Needed 08/30/09 Discontinued Ibuprofen 200 Mg Capsule, 1 Tab Oral Daily 03/12/09 Discontinued Lisinopril 40 Mg Tablet, 40 Mg Oral Bedtime 01/13/16 Discontinued Meloxicam (Mobic) 15 Mg Tablet, 15 Mg Oral As Needed 02/08/11 Discontinued Montelukast Sodium (Singulair) 10 Mg Tablet, 1 Tab Oral Bedtime 08/30/09 Discontinued Multivitamins (Multiple Vitamin) 1 Tab Tablet, 1 Tab Oral Daily 07/11/10 Discontinued Naproxen (Naprosyn) 250 Mg Tablet, 250 Mg Oral Twice A Day 03/12/09 Discontinued Oxycodone Hcl/Acetaminophen (Oxycodon-Acetaminophen 7.5-325) 7.5-325 Tablet, 1 Tab Oral Daily as needed for Pain 01/28/17 Discontinued Spironolactone 25 Mg Tablet, 25 Mg Oral Bedtime 11/08/16 Discontinued Social History Social History Problem Response Recorded Date/Time Onset Date Status Reason for Hospitalization DEGENERATIVE JOINT DISEASE 02/01/2017 1:49pm Not Applicable Not Applicable Chewing Tobacco Status No 01/29/2017 8:45am Not Applicable Not Applicable Hx Substance Use No 01/29/2017 8:45am Not Applicable Not Applicable Hx Alcohol Use Y RARE 01/29/2017 8:45am Not Applicable Not Applicable Has the pt used tobacco in the last 12 months Yes 01/29/2017 8:45am Not Applicable Not Applicable Query Response Start Date Stop Date Smoking Status Current every day smoker Hospital Discharge Instructions Instructions: Care Instructions: Reason for Hospitalization: DEGENERATIVE JOINT DISEASE I was in the hospital because (patient own words): "for total hip replacement" Discharge Diet: Resume normal diet as tolerated Discharge Activity: Continue the exercises you were given in the hospital three times a day. Your therapist will provide you with a home therapy program prior to your hospital discharge. As you feel stronger, increase the number of repetitions you do in each session. Please check with us before you swim, use a whirlpool, drive or ride a bicycle. Follow Up Appointments: Follow up as scheduled Pending Lab / Results: No Pending Lab Patient Instructions: Driving may be resumed once you are no longer taking narcotic medications and feel you can safely operate the vehicle. You may wish to practice in an empty parking lot at first. Keep in mind that your reaction time will be delayed for up to 6 weeks after surgery. Contact your surgeon for antibiotics to take before having dental work. Wound/Incision Care: In most cases, a Mepilex dressing will be placed at the time of surgery. This dressing will not need to be covered while showering. Leave dressing in place until your follow-up appointment as long as it remains clean, dry and stuck down well around the edges. Call your Doctor if you encounter a problem with your dressing. Please avoid submerging your incision until it is completely healed, once the Mepilex dressing is removed. This includes bathtubs, swimming pools, and hot tubs. DO NOT USE ALCOHOL, PEROXIDE, OR OINTMENTS of any kind on your incision. Pain Management/Treatment: Ice packs may be used, and will also help with the pain. You will be given a prescription for pain. Expected Signs/Symptoms: Some swelling around the incision, as well as in your feet and legs is normal. To help with this, elevate your feet on a footstool when sitting in a chair, and do the ankle pumps and circles whenever you are sitting still. Muscle action helps to move collected fluid out of the tissues and improve circulation. Ice packs may be used, and will also help with the pain. Report any persistent swelling, calf tenderness, increase in pain, or pain in the calf with warmth, or redness to your doctor. Notify Physician If: Report any complications to my office immmediately. This includes excessive bleeding, wound breakdown, redness around the wound, uncontrolled pain, or fever over 101 on 3 different measurements. Eat a balanced diet and get plenty of rest. During Business Hours:: If you have any questions or concerns, please call during regular office hours ([phone]). After Business Hours:: If you have any problems or need to reach a physician after hours or on the weekend please call the hospital's main number [phone] to have your physician paged. Condition at time of discharge: Good Plan of Care Discharge Date 02/01/17 2:14pm Disposition 01 DISCHARGED HOME, SELF-CARE Instructions/Education Provided [facility] Postop Instructions [facility] General Instructions Prescriptions See Medication Section Additional Instructions/Education FOLLOW UP WITH DR DENTON 02-20-17 @ 10:45AM PHYSICAL THERAPY AT [facility] SATURDAY, 02/04 CHECK IN AT 1:00. APPOINTMENT AT 1: 20. P#[phone]. Follow up with Dr. Tabor within 1 week to re evaluate when to re start Lisinopril and Sprionolactone. Care Plan and Goals See Discharge Instructions Section Functional Status Query Response Date Recorded Mobility Status Ambulatory w/assist February 01, 2017 1:49pm Assistive Devices Standard Walker February 01, 2017 1:49pm Activity Limitations Weakness February 01, 2017 1:49pm Feeding Ability Independent February 01, 2017 1:49pm Toileting Ability Assist February 01, 2017 1:49pm Grooming Ability Assist February 01, 2017 1:49pm Dressing Ability Assist February 01, 2017 1:49pm Driving Ability Independent February 01, 2017 1:49pm Housework Ability Assist February 01, 2017 1:49pm Meal Preparation Ability Assist February 01, 2017 1:49pm Stair Climbing Ability Assist February 01, 2017 1:49pm Ability to complete ADL's impeded by No change February 01, 2017 1:49pm Cognitive/Perceptual Impairments Impaired vision February 01, 2017 1:49pm Visual Assistive Devices Glasses January 29, 2017 1:38pm Preferred Method of Learning Hands on January 29, 2017 1:38pm Allergies, Adverse Reactions, Alerts Allergen Type Severity Reaction Status Last Updated hydrocodone bit Adverse Reaction Unknown ITCHING Active 01/29/17 Sulfa (Sulfonamide Antibiotics) Adverse Reaction Unknown ITCHING Active Amlodipine Allergy Unknown RASH Active 01/29/17 Immunizations Query Response on File Recorded Date/Time Hx Influenza Vaccination Y JUN 2016 01/29/17 8:45am Hx Pneumococcal Vaccination Y PREVNAR 13-03-23-01/29/17 8:45am Hx Influenza Vaccination Y JUN 2016 01/29/17 8:45am Influenza Vaccine Hx 2015 01/30/17 12:35pm Vital Signs Acute Vital Signs Vital Response Date/Time Temperature (Fahrenheit) 97.7 deg F (96.8 - 99.1) 02/01/2017 12:10pm Temperature (Calculated Celsius) 36.93057 degrees C (36.0 - 37.3) 02/01/2017 12:10pm Temperature Source Oral 02/01/2017 12:10pm Pulse Rate (adult) 79 bpm (60 - 100) 02/01/2017 12:10pm Respiratory Rate 18 breaths/min (10 - 20) 02/01/2017 12:10pm O2 Sat by Pulse Oximetry 98 % (90 - 100) 02/01/2017 12:10pm Oxygen Delivery Method Room Air 02/01/2017 12:10pm Oxygen Delivery Method Nasal Cannula 01/29/2017 1:20pm Oxygen Flow Rate 1.00 L/min 01/31/2017 4:00pm Blood Pressure 135/84 mm Hg 02/01/2017 12:10pm Blood Pressure Source Automatic Cuff 02/01/2017 12:10pm Height (Feet) 5 feet 02/01/2017 8:02am Height (Inches) 4.00 inches 02/01/2017 8:02am Weight (Kilograms) 96.500 kg 02/01/2017 9:00am Body Mass Index (BMI) 33.3 01/29/2017 8:35am Results Laboratory Results Test Name Result Units Flags Reference Collection Date/Time Result Date/ Time Comments White Blood Count 17.6 T/MM3 H 4.5-11.0 02/01/2017 4:56am 02/01/2017 5: 41am Red Blood Count 2.54 M/MM3 L 4.00-5.20 02/01/2017 4:56am 02/01/2017 5: 41am Hemoglobin 8.3 GM/DL L 12-16 02/01/2017 4:56am 02/01/2017 5:41am Hematocrit 25.7 % L 36-46 02/01/2017 4:56am 02/01/2017 5:41am Mean Corpuscular Volume 101.2 UM3 H 80-100 02/01/2017 4:56am 02/01/2017 5:41am Mean Corpuscular Hemoglobin 32.7 UUG 26-34 02/01/2017 4:56am 2016 5:41am Mean Corpuscular Hemoglobin Concent 32.3 GM/DL 31-37 02/01/2017 4:56am 02/01/2017 5:41am RDW Standard Deviation 48.7 FL 36.9-50.2 02/01/2017 4:56am 02/01/2017 5 :41am Platelet Count 194 T/MM3 130-400 02/01/2017 4:56am 02/01/2017 5:41am Mean Platelet Volume 10.9 UM3 9.4-12.4 02/01/2017 4:56am 02/01/2017 5: 41am Neutrophils % (Manual) 76.0 % H 33-66 01/31/2017 12:57pm 01/31/2017 1: 39pm Band Neutrophils % 1.0 % 0-6 01/31/2017 12:57pm 01/31/2017 1:39pm Lymphocytes % (Manual) 15.0 % L 23-45 01/31/2017 12:57pm 01/31/2017 1: 39pm Monocytes % (Manual) 7.0 % 0-9.0 01/31/2017 12:57pm 01/31/2017 1:39pm Eosinophils % (Manual) 1.0 % 0-4 01/31/2017 12:57pm 01/31/2017 1:39pm Band Neutrophils # 0.2 T/MM3 01/31/2017 12:57pm 01/31/2017 1:39pm Absolute Neutrophils (Manual) 13.5 T/MM3 H 1.8-7.7 01/31/2017 12:57pm 1:39pm Lymphocytes # (Manual) 2.7 T/MM3 1-4.8 01/31/2017 12:57pm 01/31/2017 1: 39pm Monocytes # (Manual) 1.2 T/MM3 H 0-0.8 01/31/2017 12:57pm 01/31/2017 1: 39pm Eosinophils # (Manual) 0.2 T/MM3 0-0.5 01/31/2017 12:57pm 01/31/2017 1: 39pm Red Cell Morphology Comment NORMAL 01/31/2017 12:57pm 01/31/2017 1: 39pm Icterus Index < 2 0-7 02/01/2017 12:09pm 02/01/2017 12:40pm Chemistry Specimen Hemolysis < 15 0-25 02/01/2017 12:09pm 02/01/2017 12:40pm 0-25: Specimen Exhibited No Hemolysis. Turbidity < 20 0-20 02/01/2017 12:09pm 02/01/2017 12:40pm Sodium Level 143 MEQ/L 134-144 02/01/2017 12:09pm 02/01/2017 12:40pm Potassium Level 5.0 MEQ/L 3.6-5 02/01/2017 12:09pm 02/01/2017 12:40pm Chloride Level 112 MEQ/L H 98-107 02/01/2017 12:09pm 02/01/2017 12:40pm Carbon Dioxide Level 24 MEQ/L 22-30 02/01/2017 12:09pm 02/01/2017 12: 40pm Anion Gap 7 MEQ/L 5-15 02/01/2017 12:09pm 02/01/2017 12:40pm Blood Urea Nitrogen 28.0 MG/DL H 7-17 02/01/2017 12:09pm 02/01/2017 12: 40pm Creatinine 1.0 MG/DL 0.7-1.2 02/01/2017 12:09pm 02/01/2017 12:40pm BUN/Creatinine Ratio 28 RATIO H 6-26 02/01/2017 12:09pm 02/01/2017 12: 40pm Glomerular Filtration Rate Calc 56 02/01/2017 12:09pm 02/01/2017 12 :40pm Glucose Level 157 MG/DL H 65-110 02/01/2017 12:09pm 02/01/2017 12:40pm Calculated Osmolality 284 MOSM/KG H 261-280 02/01/2017 12:09pm 2016 12:40pm Calcium Level 8.5 MG/DL 8.4-10.2 02/01/2017 12:09pm 02/01/2017 12:40pm Stool Occult Blood NEGATIVE 01/30/2017 2:23pm 01/30/2017 2:46pm Urine Collection Type [place]-MIDSTREAM 01/31/2017 9:53am 2016 10:58am Urine Color YELLOW YELLOW 01/31/2017 9:53am 01/31/2017 10:58am Urine Turbidity CLEAR CLEAR 01/31/2017 9:53am 01/31/2017 10:58am Urine Specific [place] 1.010 L 1.015-1.025 01/31/2017 9:53am 2016 10:58am Urine pH 5.5 5.0-8.0 01/31/2017 9:53am 01/31/2017 10:58am Urine Leukocyte Esterase NEGATIVE NEGATIVE 01/31/2017 9:53am 2016 10:58am Urine Nitrite NEGATIVE NEGATIVE 01/31/2017 9:53am 01/31/2017 10:58am Urine Protein NEGATIVE NEGATIVE 01/31/2017 9:53am 01/31/2017 10:58am Urine Glucose (UA) NEGATIVE NEGATIVE 01/31/2017 9:53am 01/31/2017 10: 58am Urine Ketones NEGATIVE NEGATIVE 01/31/2017 9:53am 01/31/2017 10:58am Urine Urobilinogen 0.2 EU/DL NORMAL 01/31/2017 9:53am 01/31/2017 10: 58am Urine Bilirubin NEGATIVE NEGATIVE 01/31/2017 9:53am 01/31/2017 10: 58am Urine Blood NEGATIVE NEGATIVE 01/31/2017 9:53am 01/31/2017 10:58am Urinalysis Comment MICROSCOPIC NOT IND. 01/31/2017 9:53am 2016 10:58am Body Fluid Color DARK YELLOW 01/25/2017 11:10am 01/25/2017 12:18pm Body Fluid Turbidity CLOUDY 01/25/2017 11:10am 01/25/2017 12:18pm Body Fluid Total Nucleated Cells 90670 /MM3 01/25/2017 11:10am 2016 12:18pm Body Fluid RBC 46536 /MM3 01/25/2017 11:10am 01/25/2017 12:18pm Body Fluid Neutrophils 87 % 01/25/2017 11:10am 01/25/2017 12:30pm Body Fluid Lymphocytes 8 % 01/25/2017 11:10a01/25/2017 12:30pm Body Fluid Monocytes 0 % 01/25/2017 11:10am 01/25/2017 12:31pm Body Fluid Eosinophils 0 % 01/25/2017 11:10a01/25/2017 12:31pm Body Fluid Basophils 0 % 01/25/2017 11:10am 01/25/2017 12:31pm Body Fluid Other Cells (%) 5 % 01/25/2017 11:10a01/25/2017 12:31pm MACROPHAGES --- 01/25/17 1231 --- BFOTHER previously reported as: 5 % Body Fluid Type SYNOVIAL FLUID 01/25/2017 11:10am 01/25/2017 12: 18pm Body Fluid Crystal Appearance Cloudy A 01/25/2017 11:10am 2016 11:30am Body Fluid Crystal Color Pale Yellow A 01/25/2017 11:10am 2016 11:30am Body Fluid Crystal Quantity None 01/25/2017 11:10am 01/26/2017 11: 30am Synovial Fluid Source - 01/25/2017 11:10am 01/26/2017 11:30am Crystal Exam, Synovial Fluid performed at [facility] [place] [address] Aircraft Quality Control Inspector Allen Falk DO Microbiology Results Procedure Source Organism/Result Collection Date/Time Result Date/Time Result Status Body Fluid Culture Synovial Fluid, Left Hip NO GROWTH AFTER 5 DAYS 2016 2:50pm 01/19/2017 3:08pm Final Body Fluid Culture Synovial Fluid, Right Shoulder NO GROWTH AFTER 5 DAYS 11:10am 01/30/2017 11:23am Final Name: FLORENCE ELY Unit #: [id number] : 1950 Sex: F Admit Date: 01/29/17 Loc / Svc: SRG Discharge Date: DIAGNOSTIC IMAGING REPORT Report #: [id number] [facility] Aranda Indication: ITS.REASON: leukocytosis PROCEDURE: CHEST 1 VIEW: Encounter: Initial Comparison: August 26, 2013 FINDINGS: The lungs are clear. There is no abnormal airspace opacity, pleural effusion or pneumothorax identified. The heart size, pulmonary vasculature and mediastinum are within normal limits. IMPRESSION: No acute cardiopulmonary abnormality. . Procedures Procedure Status Date Provider(s) Drain/inj joint/bursa w/o us Completed 01/14/17 ARIANA PRATT MD Needle localization by xray Completed 01/14/17 Culture othr specimn aerobic Completed 01/14/17 Body fluid cell count Completed 01/14/17 Culture othr specimn aerobic Completed 01/25/17 Body fluid cell count Completed 01/25/17 Exam synovial fluid crystals Completed 01/25/17 Total hip arthroplasty Completed 01/29/17 JUSTIN DENTON MD Encounters Encounter Location Arrival/Admit Date Discharge/Depart Date Attending Provider Discharged Inpatient [facility] 01/29/17 8:15am 02/01/17 2:14pm JUSTIN DENTON MD Registered Clinic [facility] 01/25/17 11:23am ROBERT MILES Registered Clinic [facility] 01/14/17 1:34pm JUSTIN DENTON MD
[2017-02-25] MEDS ORDERED: LISI40TA4 PO (11:35)
[2017-02-25] MEDS ORDERED: ESTR0.3T3 PO (11:35)
--- NOTE | 2017-02-25 12:17 | ERPDOC ---
Departure Disposition Decision Date: February 25, 2017 Disposition Decision Time: 13:45 (BERNARDO GALDAMEZ APRN) Disposition: 01 DISCHARGED HOME, SELF-CARE Impression Impression (BERNARDO GALDAMEZ APRN) Impression: Primary Impression: Head injury, acute, without loss of consciousness Encounter type: initial encounter Qualified Codes: S09.90XA - Unspecified injury of head, initial encounter Additional Impression: Fall Encounter type: initial encounter Qualified Codes: W19.XXXA - Unspecified fall, initial encounter Severity: Moderate (BERNARDO GALDAMEZ APRN) Condition: Improved Seen By: Mid-level only (BERNARDO GALDAMEZ APRN) Referrals: Cathleen TABOR MD (PCP) Patient Instructions: Contusion in Adults (ED), Head Injury (ED) Problems/Meds/Labs Reviewed?: Yes Medications reviewed and manag: Yes (BERNARDO GALDAMEZ APRN) Additional Instructions: Your CT did not show a skull fracture or a bleed in your brain. You do have a hematoma (contusion) to the right side of your head. You may take Tylenol for pain. Follow treatment plan (see discharge instruction). Follow as needed with your PCP. Follow up care ordered?: Yes Mental Status: Alert, Oriented (BERNARDO GALDAMEZ APRN) Scripts Oxycodone HCl (Oxycodone HCl) 5 Mg Capsule 1 TAB-CAP PO QIDPRN Y for PAIN, #10 CAP Prov: BERNARDO GALDAMEZ APRN 02/25/17 HPI - Fall/Injury General Chief Complaint: Fall Stated Complaint: FALL Time Seen by Provider: 12:17 Source: patient (BERNARDO GALDAMEZ APRN) Time Seen by Provider: 12:17 (CHARIS MONGE DO) HPI - Fall/Injury Initial Comments 66 YO F present to ED with a "goose egg to the back of my head". Patient says she fell at 1030 this morning falling from standing and striking head. Patient says she slipped on the corner of a trash bag filled with laundry. Patient denies LOC, neck/back pain, ataxia or other injuries. Initially she scooted on her buttock to her bed. Says it was "a little difficult to get up" because she had hip surgery 3 weeks ago. She has been ambulatory since she was able to get up. She took 2 oxycodone 5mg and a Aspirin after fall. Oxycodone is left over from hip surgery. Occurred At: home Duration: 1-3 hrs Pain Scale: Now: 0/10, Worst: 3/10 (if she palpates hematoma) Context: slipped Loss of Consciousness: no loss of consciousness Associated Symptoms: other, DENIES: abdominal pain, chest pain, confusion, dizziness, lightheadedness, muscle spasms, nausea/vomiting, neck pain, ringing in ears, seizures, shortness of breath, slurred speech, trouble walking, vision changes (BERNARDO GALDAMEZ APRN) Allergies: Coded Allergies: amlodipine (Verified Allergy, Unknown, RASH, 02/25/17) Sulfa (Sulfonamide Antibiotics) (Verified Adverse Reaction, Unknown, ITCHING, 02/25/17) hydrocodone bit (Verified Adverse Reaction, Unknown, ITCHING, 02/25/17) TAKES OXYCODONE AT HOME Past History Past Medical History Metabolic: hypercholesterolemia, hypertension Cardiac: DENIES: angina Respiratory: COPD, asthma Female: UTI, DENIES: renal insufficiency Neurological: DENIES: seizures Musculoskeletal: back pain, osteoarthritis Psychological: DENIES: depression (BERNARDO GALDAMEZ APRN) Surgical History General: appendix, exploratory laparotomy Reproductive/: hysterectomy Joint: hand, hip, knee (BERNARDO GALDAMEZ APRN) Family History Family PMH: FOUND: other (noncontributory) (BERNARDO GALDAMEZ APRN) Vaccines Hx Influenza Vaccination: Yes (JUN 2016) Hx Pneumococcal Vaccination: Yes (PREVNAR 07-01-23) (BERNARDO GALDAMEZ APRN) Social History Does patient use chewing tobac: No (BERNARDO GALDAMEZ APRN) Review of Systems Constitutional Constitutional: DENIES: chills, dizziness, fever, weakness (BERNARDO GALDAMEZ APRN) Eyes General: DENIES: erythema, exudate Lids/Accessories: DENIES: erythema, swelling (BERNARDO GALDAMEZ APRN) ENMT Ears: DENIES: pain Sinuses: DENIES: congestion, rhinorrhea Mouth/Throat: DENIES: sore throat (BERNARDO GALDAMEZ APRN) Cardiovascular Cardiac: DENIES: chest pain, murmur Rhythm/Rate: DENIES: palpitations (BERNARDO GALDAMEZ APRN) Pulmonary Respiratory: DENIES: cough, dyspnea (BERNARDO GALDAMEZ APRN) GI Upper Abdomen: DENIES: nausea, pain, vomiting Lower Abdomen: DENIES: diarrhea, pain (BERNARDO GALDAMEZ APRN) General: DENIES: dysuria, pain (BERNARDO GALDAMEZ APRN) Musculoskeletal General: joint pain (mild after hip surgery), see HPI (BERNARDO GALDAMEZ APRN) Integumentary Skin: DENIES: itching, rash (BERNARDO GALDAMEZ APRN) Neurological General: DENIES: ataxia, change in strength, numbness, paralysis/paresis, weakness (BERNARDO GALDAMEZ APRN) Psychiatric Psychiatric: DENIES: anxiety, depression, nervousness (BERNARDO GALDAMEZ APRN) Physical Exam General General Nourishment: well nourished, well developed, no acute distress, adult General Body Habitus: well groomed (BERNARDO GALDAMEZ APRN) Vitals and Pain First Documented Vital Signs Date Time Temp Pulse Resp B/P Pulse Ox O2 Delivery O2 Flow Rate FiO2 02/25/17 11:22 97.9 76 18 167/76 98 Room Air ( DO) Vitals and Pain Weight: Kilograms: Height (feet): 5 Height (inches): 4.00 Triage Pain Scale: (BERNARDO GALDAMEZ APRN) Eyes (brief) Eyes Brief: found: EOMI, PERRL (BERNARDO GALDAMEZ APRN) Eyes Eyes Detail : Eyelids: NOT FOUND Raccoon eyes, NOT FOUND hematoma (BERNARDO GALDAMEZ APRN) ENMT (brief) ENMT Brief: FOUND: TM clear, TM good light reflex, mucosa moist, NOT FOUND: nasal exudate, nasal swelling, pharnyx erythema (BERNARDO GALDAMEZ APRN) ENMT Mouth/Dental/Tongue: NOT FOUND: loose teeth, mucosa swelling, tender teeth Pharynx: NOT FOUND: displacement, posterior drainage, uvular deviation Jaw: NOT FOUND: TMJ clicking, TMJ locking, tenderness, trismus Face: NOT FOUND: abrasion, laceration, sinus tenderness, swelling Scalp: contusion (hematoma over right occiput), NOT FOUND: abrasion, erythema, laceration Forehead: symmetric (BERNARDO GALDAMEZ APRN) Neck (brief) Neck: FOUND: trachea midline, NOT FOUND: adenopathy, spasm, tenderness, thyromegaly (AGLDAMEZ,BERNARDO A BONE DENSITY TECHNICIAN) Respiratory (brief) Respiratory: FOUND: clear all charles, equal bilaterally, symmetrical (CHARLY GALDAMEZS A BONE DENSITY TECHNICIAN) Cardiovascular (brief) Cardiac: FOUND: regular rate, regular rhythm Capillary Refill: <2 sec Pulses: all distal extremities, equal, strong (CHARLY GALDAMEZS A BONE DENSITY TECHNICIAN) Abdomen (brief) Abdominal Brief: FOUND: bowel normo active x4, soft, NOT FOUND: distended, tender (CHARLY GALDAMEZS A BONE DENSITY TECHNICIAN) Musculoskeletal Joint #1: Side: Bilateral Joint: shoulder, elbow, wrist, knee, ankle Joint Findings: FOUND: no abnormalities, NOT FOUND: ROM limited, deformity, discoloration, instability, pain, swelling Joint #2: Side: Left Joint: hip Joint Findings: FOUND: pain (Mild TTP over incision site), NOT FOUND: ROM limited, deformity, instability, swelling Joint #3: Side: Right Joint: hip Joint Findings: NOT FOUND: ROM limited, deformity, discoloration, instability, pain, swelling Back: NOT FOUND: spasm, spine point tenderness, tenderness (CHARLY GALDAMEZS A BONE DENSITY TECHNICIAN) Integumentary (brief) Integumentary Brief: FOUND: dry, pink, warm (CHARLY GALDAMEZS A BONE DENSITY TECHNICIAN) Neurologic (brief) Neurological Brief: FOUND: CN w/o gross def to obs (CHARLY GALDAMEZS A BONE DENSITY TECHNICIAN) Neurologic Mental Status: FOUND: alert, oriented (x3) Cranial Nerves: NOT FOUND: facial asymmetry Motor : Motor Location: foot extension, foot flexion, turnaround engineer strength Motor Degree: 5 Sensation: FOUND: soft touch intact x4 ext (CHARLY GALDAMEZS A BONE DENSITY TECHNICIAN) Psychiatric (brief) Psychiatric Brief: FOUND: normal affect (CHARLY GALDAMEZS A BONE DENSITY TECHNICIAN) Differential Diagnoses Considering: Concussion, Contusion, Epidural Hematoma, Sprain, Strain, Subdural Hematoma (CHARLY GALDAMEZS A BONE DENSITY TECHNICIAN) Progress Results/Orders Orders Procedure Category Date Status Time Ct Head W/O Contrast CT 02/25/17 Resulted (FEBRUARYCHARIS DO) Progress Progress I discussed CT findings with patient, treatment plan and follow as needed. Patient is to see Dr. Horvath who did her total hip this Saturday. Patient was given Rx. for additional oxycodone for left hip pain since she did fall today. I discussed with patient that she will be sore for several day after fall. Patient verbalized understanding of treatment plan, follow up and return precautions. (BERNARDO GALDAMEZ APRN) CT CT : CT: Head no contrast (no acute findings) Interpretation: Reviewed Written Report (BERNARDO GALDAMEZ APRN) BERNARDO GALDAMEZ APRN February 25, 2017 12:17 FEBRUARY,CHARIS Landers DO February 26, 2017 07:12
--- NOTE | 2017-02-25 12:18 | NUR ---
PROVIDER Christal GALDAMEZ APRN AT BEDSIDE FOR EXAM.
--- OUTSIDE RECORDS SUMMARY | 2017-02-25 12:26 | XMS REPORT | Continuity of Care Document ---
Author Author [facility] Organization [facility] Address Unknown Phone Unavailable Allergies Active Description Code Type Severity Reaction Onset Reported/Identified Relationship to Patient Clinical Status Yes Amlodipine [id number] Drug Allergy Moderate rash Medications Problems Date [...] Procedures Code [place] [address] Immunization administration; one vaccine 12/28/2015 90440 Therapeutic, prophylatic or diagnostic injection (specify substance or drug ); subcutaneous or intram 12/28/2015 [id number] Followup appointment in 3 weeks 12/28/2015 CHART Obtain previous records from outside facility 12/28/2015 34453 Office visit - new pt, level 3 12/28/2015 TCARE1 Transfer of Care from Emergency Department 01/17/2016 [id number] Follow up appointment in 10 days 01/18/2016 97685 Office/outpatient visit; established patient, level 4 01/18/2016 TCARE1 Transfer of Care from Emergency Department 01/26/2016 51297 Collection of venous blood by venipuncture 01/27/2016 84021 Comprehensive metabolic panel (Albumin, Bilirubin, Ca, CO2, Cl, Creatinine , Glu, alkaline phosphatas 01/27/2016 36874 Complete blood count (CBC), automated (Hgb, Hct, RBC, WBC, platelets) and automated differential WBC 01/27/2016 14506 Sedimentation rate, non-automated 01/27/2016 76071 Antinuclear antibodies titer 01/27/2016 36254 Rheumatoid factor, quantitative 01/27/2016 FU2MO Follow up appointment in 2 months 01/27/2016 08791 Office/outpatient visit; established patient, level 4 01/27/2016 20671 Therapeutic, prophylatic or diagnostic injection (specify substance or drug ); subcutaneous or intram 04/05/2016 17091 Office/outpatient visit; established patient, level 3 04/05/2016 04331 Collection of venous blood by venipuncture 06/25/2016 41352 Comprehensive metabolic panel (Albumin, Bilirubin, Ca, CO2, Cl, Creatinine , Glu, alkaline phosphatas 06/25/2016 48621 Complete blood count (CBC), automated (Hgb, Hct, RBC, WBC, platelets) and automated differential WBC 06/25/2016 87560 Sedimentation rate, non-automated 06/25/2016 58409 Antinuclear antibodies titer 06/25/2016 10408 Rheumatoid factor, quantitative 06/25/2016 07949 Office/outpatient visit; established patient, level 4 06/25/2016 FU2MO Follow up appointment in 2 months 06/25/2016 [id number] Followup appointment in 3 weeks 06/26/2016 23784 Immunization administration; one vaccine 06/26/2016 34891 Influenza virus vaccine, split virus, for use in individuals 3 years + age , for IM use 2015 21247 Immunization administration; one vaccine 07/30/2016 99980 Influenza virus vaccine, split virus, for use in individuals 3 years + age , for IM use 2015 39134 Office/outpatient visit; established patient, level 4 07/30/2016 FU3WK Followup appointment in 3 weeks 07/30/2016 78898 Collection of venous blood by venipuncture 07/31/2016 68525 Basic metabolic panel (Ca, CO2, Cl, Creatinine, Glu, K, Na, BUN) 07/31/2016 FU6WK Follow up appointment in 6 weeks 07/31/2016 41560 Collection of venous blood by venipuncture 09/12/2016 07764 Basic metabolic panel (Ca, CO2, Cl, Creatinine, Glu, K, Na, BUN) 09/12/2016 62758 Office/outpatient visit; established patient, level 4 09/12/2016 FU6WK Follow up appointment in 6 weeks 09/12/2016 REFER Set up patient referral to a bi consultant 09/12/2016 REFER Set up patient referral to a bi consultant 09/12/2016 REFER Set up patient referral to a bi consultant 09/12/2016 22438 Collection of venous blood by venipuncture 10/24/2016 54132 Radiologic examination, chest, two views, frontal and lateral 10/24/2016 13156 Comprehensive metabolic panel (Albumin, Bilirubin, Ca, CO2, Cl, Creatinine , Glu, alkaline phosphatas 10/24/2016 67178 Electrocardiogram, routine with at least 12 leads; with interpretation and report 10/24/2016 A4556 EKG electrodes 39742 Office/outpatient visit; established patient, level 4 10/24/2016 09229 Therapeutic, prophylactic or diagnostic injection; subcutaneous or intramuscular 2016 [id number] Ceftriaxone Sodium, per 250 mg 11/12/2016 95044 Office/outpatient visit; established patient, level 3 11/12/2016 FU3WK Followup appointment in 3 weeks 02/05/2017 47903 Immunization administration; one vaccine 02/05/2017 KARIME Preauthorize the zostax immunization 02/05/2017 50318 Office/outpatient visit; established patient, level 3 02/05/2017 Results Encounters ACCT No. Visit Date/Time Discharge Status Pt. Type Provider Facility Loc./Unit Complaint [id number] 02/05/2017 15:17:01 2016 15:46:46 DIS Outpatient Sanjeev PETER, Franc [facility]
--- NOTE | 2017-02-25 13:09 | DI ---
Indication: ITS.REASON: fell from standing, struck right occiput Procedure: CT HEAD W/O CONTRAST: Encounter: Initial Comparison: None Technique: Axial CT images through the head were performed without contrast. Iterative Reconstruction dose reducing technique was utilized. FINDINGS: The normal petersen-white matter differentiation is maintained. No intra-axial or extra-axial mass or hemorrhage seen. No mass effect or midline shift. The ventricles and cerebral sulci are normal in size, shape, and configuration without evidence of hydrocephalus. The basilar cisterns are patent. Right parietal scalp swelling/cephalohematoma. No acute calvarial fracture. The visualized paranasal sinuses and mastoid air cells are well-aerated. The visualized orbits and globes appear normal. IMPRESSION: Right parietal scalp swelling/cephalhematoma with no acute intracranial process identified by CT. .
[2017-02-25] MEDS ORDERED: OXYC5CAP3 PO (13:49)
[2017-02-25 13:53] VITALS: BP 139/79; PULSE 74; RESP 16; O2SAT 98
== END 2017-02-25 13:58 | disposition home or self-care (01) ==
LOC: ED 11:20
DX: S00.03XA Contusion of scalp, initial encounter (principal); W01.0XXA Fall on same level from slipping, tripping and stumbling without subsequent striking against object, initial encounter; Y93.9 Activity, unspecified; Y92.003 Bedroom of unspecified non-institutional (private) residence as the place of occurrence of the external cause; Y99.8 Other external cause status